=== PATIENT | male | born 1980 | race Caucasian/White ===

== ENCOUNTER 2023-06-14 14:59 | Emergency (ER) | payer SELFPAY ==
[2023-06-14] VITALS (7 sets, daily range): BP systolic 112–126; BP diastolic 78–98; PULSE 87–102; RESP 16–20; TEMP 35.9–36.1; O2SAT 97–100; BMI 33.7
--- NOTE | 2023-06-14 15:07 | EX.ED.DYSGE1 ---
HPI History of Present Illness Chief Complaint: Shortness of Breath [facility] Medical History (Updated 06/14/23 @ 16:04 by Ania Lu) CHF (congestive heart failure) Medical History no medical history Home Medications amoxicillin 875 mg-potassium clavulanate 125 mg tablet 1 tab PO BID #14 tabs 06/14/23 [Rx Last Taken Unknown] furosemide 40 mg tablet 40 mg PO BID #14 tabs 06/14/23 [Rx Last Taken Unknown] Allergy/AdvReac Type Severity Reaction Status Date / Time No Known Allergies Allergy Verified 06/14/23 15:00 Social History Smoking Status: Current every day smoker tobacco type: cigarettes EXAM Physical Exam Const Vital Signs: 06/14/23 15:00 06/14/23 15:59 06/14/23 16:02 Temperature 96.6 F L Temperature Source Temporal Pulse Rate 102 H 91 Respiratory Rate 18 20 H Respiratory Effort Respiratory Pattern Blood Pressure 126/98 H 113/84 H Blood Pressure Mean 107 93 Pulse Ox 100 97 Oxygen Delivery Method Room Air Room Air Room Air 06/14/23 16:02 06/14/23 16:05 06/14/23 18:00 Temperature 97 F L Temperature Source Pulse Rate 88 Respiratory Rate 16 Respiratory Effort Normal Non-Labored Short of Breath Respiratory Pattern Normal Blood Pressure 112/88 H Blood Pressure Mean 96 Pulse Ox 98 Oxygen Delivery Method Room Air 06/14/23 17:00 06/14/23 17:15 Temperature Temperature Source Pulse Rate 87 88 Respiratory Rate 18 16 Respiratory Effort Respiratory Pattern Blood Pressure 113/78 112/88 H Blood Pressure Mean 89 95 Pulse Ox 97 98 Oxygen Delivery Method MDM MDM MDM Narrative Medical decision making narrative: HISTORY OF PRESENT ILLNESS: 42-year-old male presents with shortness of breath. Notes has been ongoing for weeks. States he has history of heart failure. Notes he does not see his bed maker until July. He notes increased dyspnea on exertion and swelling. He also endorses chest pain. Chest pain is been constant over this time period. He denies any history of diabetes, hypertension, hyperlipidemia. Denies family history of early cardiac . Denies drug use. Notes cough is chronic. No shortness of breath as well. Denies fever or sick contacts. Is not vaccinated gets COVID or flu. The patient denies recent surgery in the last 4 weeks or immobilization in the last 3 days, denies previous diagnosis of DVT or PE, hemoptysis, unilateral leg swelling or malignancy with treatment the last 6 months or palliative. No estrogen use noted. Patient denies sudden onset of pain, no tearing sensation, no migratory symptoms, no new numbness, weakness or loss of sensation. Patient denies family history or personal history of Connective tissue disorders (Marfan's Syndrome, Jeovanny Danlos etc). REVIEW OF SYSTEMS: Pertinent positives: Chest pain, SOB, leg swelling Pertinent negatives: Syncope, unilateral leg swelling, mopped assist PHYSICAL EXAM: Nursing triage notes reviewed, Vital signs reviewed Constitutional: please see mdm HENT: MMM Eyes: Pupils equal round and reactive to light, Extraocular muscles intact Neck: No stridor, no JVD, full neck ROM Lungs: Clear to auscultation, No wheezing or rales. No increased work of breathing, no conversational dyspnea, no accessory muscle use, no nasal flaring. No respiratory distress noted Heart: Regular rate and rhythm, No murmurs, No rubs and No gallops, 2+ distal pulses (radial, femoral, posterior tibial) in all extremities Abdomen: Soft, there is no tenderness, rigidity, rebound or guarding, no obvious peritoneal signs, no palpable pulsatile abdominal masses, no auscultated abdominal bruit : No CVAT Extremities: No edema Neuro: No focal neurological deficits, cranial nerves II through XII intact, 5/5 strength in all extremities. Intact sensation to light touch in all extremities, 2+ reflexes bilateral patella tendons. Normal gait. No ataxia. Skin: No rash or lesions noted MEDICAL DECISION MAKING: Chief Complaint: Shortness breath, chest pain and swelling External records reviewed: No recent cardiac catheterizations, stress test or echocardiograms noted in our chart reviewed clinisync which showed a history of left heart and right heart catheterization however there is no date or results of the studies noted Factors affecting care: Heart failure Social determinants of health: none History obtained from others: Patient's girlfriend Consults: none [facility] Narrative: Patient was initially hemodynamically stable, afebrile and nontoxic-appearing. Exam without rales, wheezes, respiratory distress, no focal cardiopulmonary maladies. No lower extremity edema. States the symptoms been ongoing for 2 weeks. Chest pain is worse today. I considered the following differential diagnosis: CHF exacerbation, pneumonia, COVID, flu, ACS, arrhythmia, anemia ALL IMAGES (IF OBTAINED) HAVE BEEN PERSONALLY REVIEWED AND INTERPRETED BY MYSELF. EKG with normal sinus rhythm, left axis deviation, normal intervals, no obvious STEMI, frequent PVCs, bigeminy, no prior EKG for comparison CBC without leukocytosis, severe anemia, no thrombocytopenia. BNP elevated consistent with volume overload, increased ventricular stretch, no prior for comparison BMP without evidence of significant electrolyte abnormalities, no anion gap, no acute kidney injury. High-sensitivity troponin is negative, no evidence of myocardial ischemia CBC without leukocytosis, severe anemia, no thrombocytopenia. The synthesis of the patient's history, exam, labs images suggest likely community-acquired pneumonia and mild CHF exacerbation. Patient appears comfortable he is in no respiratory distress. No rales. He had very slight lower extremity edema. He ambulate without significant hypoxia. Given the mild presentation I did offer him admission for IV diuresis and IV antibiotics however he refused stating he like to go home and take oral antibiotics and increase his diuretic over next week and follow with his primary doctor for outpatient lab evaluation. Oral Augmentin and IV Lasix given here in the ED. Prescription written. All questions answered. I completed a HEART Score to screen for Major Adverse Cardiac Event (MACE) in this patient. The evidence indicates that the patient is very low risk for MACE and this is consistent with my clinical intuition. The risk of further workup or hospitalization for MACE is likely higher than the risk of the patient having a MACE. It is, therefore, in the patient?s best interest not to do additional emergent testing or to be hospitalized for MACE at this time. Shared Decision-Making No hospitalization indicated I have discussed with the patient my clinical impression and the result of the HEART Score to screen for MACE, as well as the risks of further testing and hospitalization. The HEART Score shows that the risk for MACE is less than 1%. Although the risk of MACE has not been completely eliminated, the risks of further testing or hospitalization for MACE likely exceed any potential benefit, and the patient agrees with not pursuing further emergent evaluation or hospitalization for MACE at this time. The patient and/or family, caregivers express understanding. The patient and/or family, caregivers agrees with the plan. Total critical care time today provided was at least 0 minutes. This excludes separately billable procedures. Critical care time (if documented) is secondary to the patient having high probability of clinically significant/life threatening deterioration in the patient's condition which required my urgent intervention. Impression: 1. Dyspnea 2. Shortness of breath 3. Community pneumonia 4. CHF exacerbation Dispo: Discharge home This note was generated with [employer] dictation software. It may contain incorrect words, spelling, and punctuation that were not noted in review of the chart prior to signing. Lab Data Labs: Laboratory Results - last 24 hr 06/14/23 15:53 WBC 7.6 RBC 5.39 Hgb 15.5 Hct 46.5 MCV 86.3 MCH 28.8 MCHC 33.3 RDW Std Deviation 40.4 RDW Coeff of [place] 13.0 Plt Count 161 MPV 12.2 H Immature Gran % (Auto) 0.400 Neut % (Auto) 57.4 Lymph % (Auto) 33.0 Bell % (Auto) 7.2 Eos % (Auto) 1.2 Baso % (Auto) 0.8 Absolute Neuts (auto) 4.4 Absolute Lymphs (auto) 2.51 Nucleated RBC % 0 Sodium 135 L Potassium 4.0 Chloride 103 Carbon Dioxide 26.0 Anion Gap 6 BUN 14 Creatinine 1.17 Estim Creat Clear Calc 109.72 Est GFR (MDRD) Af Amer 88 Est GFR (MDRD) Non-Af 72 BUN/Creatinine Ratio 12.0 Glucose 407 H Calcium 9.3 Troponin I High Sens 40 B-Natriuretic Peptide 720.2 H Radiography Diagnostic Testing: Clinical Impression(s) from Imaging Studies Chest X-Ray 06/14/23 15:17 IMPRESSION: Mild cardiomegaly. Question right infiltrate/edema. Electronically Signed: Klaus Toledo MD at 15:37 EST Reading Location ID and State: [facility] / [place] Tel , Service support , Discharge Plan Triage Chief Complaint: Shortness of Breath Other Complaint: Edema ED Provider: Mauro Concepcion Dx/Rx/DC Orders Instructions: ED Heart Failure, Congestive (CHF), ED Peripheral Edema, Bilateral, ED Pneumonia (Adult) Prescriptions: New amoxicillin-pot clavulanate 875-125 mg tablet 1 tab PO BID Qty: 14 0RF furosemide 40 mg tablet 40 mg PO BID Qty: 14 0RF Primary Care Provider: Care Physician,No Primary Referrals: Radha Singh MD [Med Staff - Sew On Operator] - Activity Restrictions/Additional Instructions: Thank you for trusting us with your care today! Given diagnosed with Community pneumonia and a congestive heart failure exacerbation. Please take Tylenol (2 pills, 650 mg), ibuprofen (2 pills, 400 mg) every 6 hours as needed for pain and fever control. Please take antibiotics to course complete. Please take Lasix as prescribed for neck 7 days. Please return to the emergency department if your symptoms change or worsen. Specifically develop loss of consciousness, severe chest pain, worsening shortness of breath, worsening swelling. Please follow with your primary care physician for further outpatient evaluation and management. Disposition Disposition: Home, Self Care Discharge Date/Time: 06/14/23 18:15
--- NOTE | 2023-06-14 15:12 | EKG12_ITS ---
Test Reason : CP Blood Pressure : / mmHG Vent. Rate : 094 BPM Atrial Rate : 094 BPM P-R Int : 190 ms QRS Dur : 108 ms QT Int : 366 ms P-R-T Axes : 066 -75 073 degrees QTc Int : 457 ms Sinus rhythm with Premature supraventricular complexes and with frequent Premature ventricular comple xes Left axis deviation Septal infarct , age undetermined Abnormal ECG Confirmed by PETER BOLTON, MEKA ([id number]), medical editor SANIYA CIFUENTES ([id number]) on 06/16/2023 10:11:38 AM Referred By: JUJU Confirmed By:MEKA GREEN MD
--- NOTE | 2023-06-14 15:17 | RAD_ITS ---
EXAM: XR CHEST, 1 VIEW CLINICAL INDICATION: Shortness of breath TECHNIQUE: Frontal view of the chest. COMPARISON: No relevant prior studies available. FINDINGS: LUNGS AND PLEURAL SPACES: Mild peribronchial thickening within the central portion of the right lung which may represent pulmonary edema or acute inflammatory or infectious change. No pleural effusion or pneumothorax. HEART: Mild cardiomegaly. MEDIASTINUM: No mediastinal or hilar mass. BONES/JOINTS: No acute abnormality. RAD/Chest 1 View (Portable) IMPRESSION: Mild cardiomegaly. Question right infiltrate/edema. Electronically Signed: Klaus Toledo MD at 15:37 EST ,
--- NOTE | 2023-06-14 15:20 | NURSING ---
NO OLD EKGS
--- OUTSIDE RECORDS SUMMARY | 2023-06-14 15:49 | XMS RPT_ITS | CCD ---
Author Name Unknown Address [address] [place] [address] Organization [facility] Care Team Providers Care Patient Relations Coordinator Name Role Phone DANA ELDER, DR DARIEL Lennon Primary Care Physician Unavailable Primary Care Provider radha Kendall Attending Unavaila santana [facility], 837 Primary Care Unavail RENEE Ruano Attending Unavailable DR DARIEL CORTEZ DO Primary Care Unavai lable Medications Current Medications Medication Drug Class(es) Dates Sig (Normalized) Sig (Original) fluticasone propionate 0.05 mg/actuat metered dose nasal spray (3 sources) Corticosteroid Start: 03-17-2021 take 1 dose nasal route once daily in the morning fluticasone 50 mcg/inh NASAL spray Dose = 1 spray(s), Nostril, each, qAM, # 15.8 mL, 0 Refill(s), Eustachian tube disorder Start Date: 03/17/21 Status: Ordered Completed/Discontinued Medications Medication Drug Class(es) Dates Sig (Normalized) Sig (Original) acetaminophen 325 mg / HYDROcodone bitartrate 5 mg oral tablet (1 source) Opioid Agonist Start: 03-06-2014 take 1 tablet by mouth every six hours as needed HYDROcodone-aceta minophen (NORCO) 5-325 mg per tablet Take 1 tablet by mouth every 6 hours as needed. 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 Nonspecific chest pain (1 source) Chest pain; Translations: [Chest pain, unspecified] Onset: 08-02-2021 Episodic Otitis media and related conditions (3 sources) Eustachian tube disorder 03-17-2021 Episodic Residual codes; unclassified (1 source) Obstructive sleep apnea syndrome; Translations: [Obstructive sleep apnea (adult) (pediatric)] Onset: 08-02-2021 Chronic Results Test Name Value Interpretation Reference Range Facil ity Vital Signs Date Time Vital Sign Value Performing Clinician Kiki lorenzo 06-02-2023 17:25-[address] Cuff Size DR GAURI ANTONIO MD [facility] 06-02-2023 17:25-[address] GAURI ANTONIO MD [facility] 06-02-2023 17:25-[address] GAURI Howard MD [facility] 06-02-2023 17:25-0500 Body height 185.[address] GAURI ANTONIO MD [facility] 06-02-2023 17:25-0500 Body temperature 96.98 [degF] DR GAURI ANTONIO MD [facility] 06-02-2023 17:25-0500 Body weight 113.[address] GAURI ANTONIO MD [facility] 06-02-2023 17:25-0500 Diastolic Blood Pressure Non-Invasive 74 mm[Hg] DR GAURI ANTONIO MD [facility] 06-02-2023 17:25-0500 Heart rate 104 /min DR GAURI ANTONIO MD [facility] 06-02-2023 17:25-0500 Respiratory rate 18 /min DR GAURI ANTONIO MD [facility] 06-02-2023 17:25-0500 Systolic Blood Pressure Non-Invasive 129 mm[Hg] DR GAURI ANTONIO MD [facility] 02-16-2023 15:37-0400 Blood Pressure Cuff Size RENEE MELO MD [facility] 02-16-2023 15:37-0400 Blood Pressure Location RENEE MELO MD [facility] 02-16-2023 15:37-0400 Blood Pressure Method RENEE MELO MD [facility] 02-16-2023 15:37-0400 Body temperature 98.06 [degF] RENEE MELO MD [facility] 02-16-2023 15:37-0400 Diastolic Blood Pressure Non-Invasive 81 1 RENEE MELO MD [facility] 02-16-2023 15:37-0400 Heart rate 99 /min RENEE MELO MD [facility] 02-16-2023 15:37-0400 Respiratory rate 18 /min RENEE MELO MD [facility] 02-16-2023 15:37-0400 Systolic Blood Pressure Non-Invasive 122 1 RENEE MELO MD [facility] 2021 03:52-0400 Diastolic blood pressure 68 mm[Hg] MARIEL FITCH MD [facility] 2021 03:52-0400 Heart rate 88 /min MARIEL FITCH MD [facility] 2021 03:52-0400 Mean blood pressure 77 mm[Hg] MARIEL FITCH MD [address] [place] [address] 2021 03:52-0400 Reason For Taking VItal Signs MARIEL FITCH MD [facility] 2021 03:52-0400 Respiratory rate 16 /min MARIEL FITCH MD [address] [place] [address] 2021 03:52-0400 Systolic blood pressure 94 mm[Hg] MARIEL FITCH MD [address] [place] [address] 2021 01:40-0400 Heart rate 85 /min MARIEL FITCH MD [address] [place] [address] 2021 01:24-0400 Heart rate 79 /min MARIEL FITCH MD [address] [place] [address] 2021 01:14-0400 Body temperature 97.7 [degF] MARIEL FITCH MD [address] [place] [address] 08-02-2021 23:07-0400 Body temperature 98.06 [degF] MARIEL FITCH MD [address] [place] [address] 08-02-2021 23:07-0400 Diastolic blood pressure 80 mm[Hg] MARIEL FITCH MD [address] [place] [address] 08-02-2021 23:07-0400 Mean blood pressure 88 mm[Hg] MARIEL FITCH MD [address] [place] [address] 08-02-2021 23:07-0400 Reason For Taking VItal Signs MARIEL FITCH MD [address] [place] [address] 08-02-2021 23:07-0400 Respiratory rate 16 /min MARIEL FITCH MD [facility] 08-02-2021 23:07-0400 Systolic blood pressure 104 mm[Hg] MARIEL FITCH MD [address] [place] [address] 08-02-2021 19:37-0400 Body temperature 97.88 [degF] MARIEL FITCH MD [address] [place] [address] 08-02-2021 19:37-0400 Diastolic blood pressure 68 mm[Hg] MARIEL FITCH MD [address] [place] [address] 08-02-2021 19:37-0400 Mean blood pressure 81 mm[Hg] MARIEL FITCH MD [address] [place] [address] 08-02-2021 19:37-0400 Reason For Taking VItal Signs MARIEL FITCH MD [address] [place] [address] 08-02-2021 19:37-0400 Respiratory rate 18 /min MARIEL FITCH MD [address] [place] [address] 08-02-2021 19:37-0400 Systolic blood pressure 106 mm[Hg] MARIEL FITCH MD [facility] 08-02-2021 16:32-0400 Body height 185.4 cm MARIEL FITCH MD [facility] 08-02-2021 16:32-0400 Body weight 122.5 kg MARIEL FITCH MD [address] [place] [address] 08-02-2021 16:32-0400 Body weight 35.64 kg/m2 MARIEL FITCH MD [facility] 08-02-2021 16:10-0400 Heart rate 93 /min MARIEL FITCH MD [facility] 08-02-2021 11:58-0400 Heart rate 97 /min MARIEL FITCH MD [facility] 08-01-2021 21:57-0400 Body weight 122.5 kg MARIEL FITCH MD [facility] 08-01-2021 21:57-0400 Heart rate 115 /min MARIEL FITCH MD [facility] Encounters Encounter Date Encounter Type Care Provider Facility Start: 06-02-2023 End: 06-02-2023 Emergency department patient visit DR GAURI ANTONIO MD [facility] Start: 02-16-2023 End: 02-16-2023 Emergency department patient visit RENEE MELO Facility:B Start: 02-16-2023 End: 02-16-2023 Emergency department patient visit RENEE MELO MD [facility] Start: 01-22-2022 End: 01-22-2022 Emergency department patient visit radha SUPRIYA ELIAS [facility] Facility:[id number] Start: 08-15-2021 End: 08-15-2021 Subsequent hospital visit by physician PARAMJIT CANO Procedures Date Procedure Procedure Detail Performing Clinician Start: 08-23-2021 Ecg routine ecg w/le ast 12 lds i&r only Start: 08-22-2021 Ecg routine ecg w/le ast 12 lds i&r only Start: 08-15-2021 Ecg routine ecg w/le ast 12 [facility] i&r only Catheterization of l eft heart MARIEL FITCH MD Catheterization of r ight heart MARIEL FITCH MD Cholecystectomy MARIEL Tam MD Incision and drainag e of deep infected bursa of knee region MARIEL FITCH MD Plan of Treatment Date Care Activity Detail Author Start: 12-27-2021 Influenza vaccination INFLUENZA (Sea son Ended) [facility] Start: 08-04-2015 LIPID SCREEN LIPID SCREEN [facility] Start: 08-04-1999 Urine microalbumin profile DTAP,TDAP ,TD (1 - Tdap) [facility] Start: 1998 HEPATITIS C SCREENING HEPATITIS C SC REENING [facility] Start: 1998 HIV SCREENING HIV SCREENING [facility] Start: 1992 Adult depression scr eening assessment DEPRESSION SCREENING [facility] Start: 1985 COVID-19 VACCINE (1) COVID-19 VACCIN E (1) [facility] Payers Date Payer Category Payer Self-pay 1980 Unknown [id number] 1980 Unknown [id number] Social History Date Type Detail Facility Start: 03-17-2021 Tobacco smoking status Heavy t obacco smoker (finding) [facility] Assigned 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 Start: 1980 Sex Assigned At Not on file C [facility] Functional Status Date Assessment Result Facility 02-16-2023 Functional Status Independent [facility] 02-16-2023 Functional Status Ambulation in [place], Ambulation in Room [facility] 2021 Functional Status [facility] 2021 Functional Status [facility] 08-02-2021 Functional Status [facility] 08-02-2021 Functional Status [facility] 08-02-2021 Functional Status [facility] 08-02-2021 Functional Status [facility] Mental Status Date Assessment Result Facility 02-16-2023 Mental Status Orientation Oriented x 4 [facility] 02-16-2023 [facility] 2021 Mental Status [facility] 08-02-2021 [facility] 08-02-2021 Mental Status [facility] Clinical Notes 08-01-2021 to 02-16-2023 Note Date & Type Note Facility 02-16-2023 Hospital Discharge instructions Patient Education 02/16/2023 18:03:07 Heart Failure, Congestive (CHF) Left- or Right- Side Congestive Heart Failure (CHF) The heart is a large muscle that acts as a pump to circulate blood throughout the body. Blood carries oxygen to all of the organs, including the brain, muscles, and skin. After your body takes the oxygen out of the blood, the blood returns to the heart. The right side of the heart collects the blood from the body and pumps it to the lungs. In the lungs, it gets fresh oxygen and gives up carbon dioxide. The oxygen-rich blood from the lungs then returns to the left side of the heart, where it is pumped back out to the rest of your body, starting the process all over. Congestive heart failure (CHF) occurs when the heart muscle does not function normally, leading to fluid retention or reduces blood flow. This can be caused by heart muscle weakness or stiffness, or a heart valve problem. Heart failure can affect the right side of the heart or the left side. But heart failure may affect not only the right side of the heart or only the left side. Although it may have started on one side, it can and often eventually does affect both sides. Right-side heart failure When the right side of the heart is failing, it can t handle the blood it is getting from the rest of the body. This blood returns to the heart through veins. When too much pressure builds up in the veins, fluid leaks out into the tissues. [place] then causes that fluid to move to those parts of the body that are the lowest. So one of the first symptoms of right-side CHF can include swelling in the feet and ankles. If the condition gets worse, the swelling can even go up past the knees. Sometimes it gets so severe, the liver and intestines can get congested as well. Left-side heart failure When the left side of the heart is failing, it can t handle the blood it gets from the lungs. Pressure then builds up in the veins of the lungs, causing fluid to leak into the lung tissues. This may cause CHF and pulmonary edema. This causes you to feel short of breath, weak, or dizzy. These symptoms are often worse with exertion, such as when climbing stairs or walking up hills. Lying with your head flat is uncomfortable and can make your breathing worse. This may make sleeping difficult. You may need to use extra pillows to elevate your upper body to sleep well. The same is true when just resting during the daytime. You may also feel weak or tired and have less energy during exertion. There are many causes of heart failure including: Coronary artery disease Past heart attack (also known as acute myocardial infarction, or AMI) High blood pressure Damaged heart valve Diabetes Obesity Cigarette smoking Alcohol abuse Heart failure is usually a chronic condition. The purpose of medical treatment is to improve the pumping action of the heart and to remove excess water from the body. A number of medicines can help reach this goal, improve symptoms, and prevent the heart from becoming weaker. Sometimes, heart failure can become so severe that a device is placed in the heart to help with pumping. Another major goal is to better treat the causes of heart failure, such as diabetes and high blood pressure, by making changes in your lifestyle and maximizing medical control when needed. Home care Follow these guidelines when caring for yourself at home: Check your weight every day. This is very important because a sudden increase in weight gain could mean worsening heart failure. Keep these things in mind: oUse the same scale every day. oWeigh yourself at the same time every day. oMake sure the scale is on a hard floor surface, not on a rug or carpet. oKeep a record of your weight every day so your healthcare provider can see it. If you are not given a log sheet for this, keep a separate journal for this purpose. Cut back on the amount of salt (sodium) you eat. Follow your healthcare provider's recommendation on how much salt or sodium you should have each day. oLimit high-salt foods. These include olives, pickles, smoked meats, salted potato chips, and most prepared foods. oDon't add salt to your food at the table. Use only small amounts of salt when cooking. oRead the labels carefully on food packages to learn how much salt or sodium is in each serving in the package. Remember, a can or package of food may contain more than 1 serving. So if you eat all the food in the package, you may be getting more salt than you think. Follow your healthcare provider's recommendations about how much fluid you should have. Be aware that some foods, such as soup, pudding, and juicy fruits like oranges or melons, contain liquid. You'll need to count the liquid in those foods as part of your daily fluid intake. Your provider can help you with this. Stop smoking. Cut back on how much alcohol you drink. Lose weight if you are overweight. The excess weight adds a lot of stress on the workload of the heart. Stay active. Talk with your provider about an exercise program that is safe for your heart. Keep your feet elevated to reduce swelling. Ask your provider about support hose as a preventive treatment for daytime leg swelling. Besides taking your medicine as instructed, an important part of treatment is lifestyle changes. These include diet, physical activity, stopping smoking, and weight control. Improve your diet by including more fresh foods, cutting back on how much sugar and saturated fat you eat, and eating fewer processed foods and less salt. Follow-up care Follow up with your healthcare provider, or as advised. Make sure to keep any appointments that were made for you. These can help better control your congestive heart failure. You will need to follow up with your provider on a routine basis to make sure your heart failure is well managed. If an X-ray, electrocardiogram (ECG), or other tests were done, you will be told of any new findings that may affect your care. Call 911 Call 911 if you: Become severely short of breath Feel lightheaded, or feel like you might pass out or faint Have chest pain or discomfort that is different than usual, the medicines your doctor told you to use for this don't help, or the pain lasts longer than 10 to 15 minutes You suddenly develop a rapid heart rate When to seek medical advice The following may be signs that your heart failure is getting worse. Call your healthcare provider right away if any of these happen: Sudden weight gain. This means 3 or more pounds in one day, or 5 or more pounds in 1 week Trouble breathing not related to being active New or increased swelling of your legs or ankles Swelling or pain in your abdomen Breathing trouble at night. This means waking up short of breath or needing more pillows to breathe. Frequent coughing that doesn t go away Feeling much more tired than usual [id number] [employer]. [address] [place] [address], [place] [address]. All rights reserved. This information is not intended as a substitute for professional medical care. Always follow your healthcare professional's instructions. Follow Up Care 02/16/2023 15:31:56 With:JANNA BENITEZ Address: [address] [facility] [place] [phone] Business (1) When:2-4 days Comments:Schedule an appointment to establish a local online media director.Continue all current medications.Elevate your legs as much as possible.Return to the ED if symptoms worsen. [facility] 02-16-2023 Emergency department Discharge summary Discharge Instructions Thank you for allowing [facility] to assist you with your healthcare needs. The following is important discharge information regarding your hospital visit. Diagnosis from Today's Visit Shortness of breath What to Do Next Instructions from Your Care Team No qualifying data available. Post Acute Orders No qualifying data available. You Need to Schedule the Following Appointments Follow Up with JANNA BENITEZ When Within 2-4 days Why: Schedule an appointment to establish a local online media director. Continue all current medications. Elevate your legs as much as possible. Return to the ED if symptoms worsen. Where: [address] [facility] [place] [address]- [phone] Business (1) Allergies NKA Medications Please ask your primary doctor or pharmacist before taking any other medication not listed, including over the counter drugs, herbal medications, vitamins and or supplements as they may interact with your home medications. What How Much When Why Instructions Last Dose Unchanged baclofen (baclofen 10 mg oral tablet) 1 tab(s) by mouth Three (3) times a day Duration: 7 Days Unchanged fluticasone nasal (fluticasone 50 mcg/ inh NASAL spray) 1 spray(s) each nostril Once a day (in the morning) Eustachian tube disorder Please take this list to your next doctor s visit. Bring all medications you take, including over the counter medications, herbals and other supplements with you to your doctor s visit. Patients and families are reminded to discard old lists and to update any records with all medication providers or retail pharmacies. Education Materials Left- or Right- Side Congestive Heart Failure (CHF) The heart is a large muscle that acts as a pump to circulate blood throughout the body. Blood carries oxygen to all of the organs, including the brain, muscles, and skin. After your body takes the oxygen out of the blood, the blood returns to the heart. The right side of the heart collects the blood from the body and pumps it to the lungs. In the lungs, it gets fresh oxygen and gives up carbon dioxide. The oxygen-rich blood from the lungs then returns to the left side of the heart, where it is pumped back out to the rest of your body, starting the process all over. Congestive heart failure (CHF) occurs when the heart muscle does not function normally, leading to fluid retention or reduces blood flow. This can be caused by heart muscle weakness or stiffness, or a heart valve problem. Heart failure can affect the right side of the heart or the left side. But heart failure may affect not only the right side of the heart or only the left side. Although it may have started on one side, it can and often eventually does affect both sides. Right-side heart failure When the right side of the heart is failing, it can t handle the blood it is getting from the rest of the body. This blood returns to the heart through veins. When too much pressure builds up in the veins, fluid leaks out into the tissues. [place] then causes that fluid to move to those parts of the body that are the lowest. So one of the first symptoms of right-side CHF can include swelling in the feet and ankles. If the condition gets worse, the swelling can even go up past the knees. Sometimes it gets so severe, the liver and intestines can get congested as well. Left-side heart failure When the left side of the heart is failing, it can t handle the blood it gets from the lungs. Pressure then builds up in the veins of the lungs, causing fluid to leak into the lung tissues. This may cause CHF and pulmonary edema. This causes you to feel short of breath, weak, or dizzy. These symptoms are often worse with exertion, such as when climbing stairs or walking up hills. Lying with your head flat is uncomfortable and can make your breathing worse. This may make sleeping difficult. You may need to use extra pillows to elevate your upper body to sleep well. The same is true when just resting during the daytime. You may also feel weak or tired and have less energy during exertion. There are many causes of heart failure including: Coronary artery disease Past heart attack (also known as acute myocardial infarction, or AMI) High blood pressure Damaged heart valve Diabetes Obesity Cigarette smoking Alcohol abuse Heart failure is usually a chronic condition. The purpose of medical treatment is to improve the pumping action of the heart and to remove excess water from the body. A number of medicines can help reach this goal, improve symptoms, and prevent the heart from becoming weaker. Sometimes, heart failure can become so severe that a device is placed in the heart to help with pumping. Another major goal is to better treat the causes of heart failure, such as diabetes and high blood pressure, by making changes in your lifestyle and maximizing medical control when needed. Home care Follow these guidelines when caring for yourself at home: Check your weight every day. This is very important because a sudden increase in weight gain could mean worsening heart failure. Keep these things in mind: oUse the same scale every day. oWeigh yourself at the same time every day. oMake sure the scale is on a hard floor surface, not on a rug or carpet. oKeep a record of your weight every day so your healthcare provider can see it. If you are not given a log sheet for this, keep a separate journal for this purpose. Cut back on the amount of salt (sodium) you eat. Follow your healthcare provider's recommendation on how much salt or sodium you should have each day. oLimit high-salt foods. These include olives, pickles, smoked meats, salted potato chips, and most prepared foods. oDon't add salt to your food at the table. Use only small amounts of salt when cooking. oRead the labels carefully on food packages to learn how much salt or sodium is in each serving in the package. Remember, a can or package of food may contain more than 1 serving. So if you eat all the food in the package, you may be getting more salt than you think. Follow your healthcare provider's recommendations about how much fluid you should have. Be aware that some foods, such as soup, pudding, and juicy fruits like oranges or melons, contain liquid. You'll need to count the liquid in those foods as part of your daily fluid intake. Your provider can help you with this. Stop smoking. Cut back on how much alcohol you drink. Lose weight if you are overweight. The excess weight adds a lot of stress on the workload of the heart. Stay active. Talk with your provider about an exercise program that is safe for your heart. Keep your feet elevated to reduce swelling. Ask your provider about support hose as a preventive treatment for daytime leg swelling. Besides taking your medicine as instructed, an important part of treatment is lifestyle changes. These include diet, physical activity, stopping smoking, and weight control. Improve your diet by including more fresh foods, cutting back on how much sugar and saturated fat you eat, and eating fewer processed foods and less salt. Follow-up care Follow up with your healthcare provider, or as advised. Make sure to keep any appointments that were made for you. These can help better control your congestive heart failure. You will need to follow up with your provider on a routine basis to make sure your heart failure is well managed. If an X-ray, electrocardiogram (ECG), or other tests were done, you will be told of any new findings that may affect your care. Call 911 Call 911 if you: Become severely short of breath Feel lightheaded, or feel like you might pass out or faint Have chest pain or discomfort that is different than usual, the medicines your doctor told you to use for this don't help, or the pain lasts longer than 10 to 15 minutes You suddenly develop a rapid heart rate When to seek medical advice The following may be signs that your heart failure is getting worse. Call your healthcare provider right away if any of these happen: Sudden weight gain. This means 3 or more pounds in one day, or 5 or more pounds in 1 week Trouble breathing not related to being active New or increased swelling of your legs or ankles Swelling or pain in your abdomen Breathing trouble at night. This means waking up short of breath or needing more pillows to breathe. Frequent coughing that doesn t go away Feeling much more tired than usual [id number] [employer]. [address] [place] [address]. All rights reserved. This information is not intended as a substitute for professional medical care. Always follow your healthcare professional's instructions. Additional Information VACCINATE! IT SAVES LIVES! Members of the community who have not yet received the COVID-19 vaccine and would like to receive it can visit one of [facility] vaccine clinics. There are many vaccine clinic locations within the [facility]. For locations and available times, please visit [email or web address] It is important to note that some COVID mobile vaccine clinics are held outdoors and may be canceled in rainy or stormy conditions. To learn more about pediatric vaccinations (ages 5-11), we invite you to visit the [facility] webpage. [email or web address]/pa [email or web address]-Srwiu-Jxhnhkzhupz-Freque [email or web address].html To learn more about the COVID-19 vaccine, we invite you to visit the CDC website for a list of frequently asked questions. https://www.cdc.gov/coronavirus/2 019-ncov/vaccines/faq.html [facility] Patient [facility] Access Instructions: Stay connected with your healthcare team and access your personal medical information anytime with the [facility] Patient Portal. If you would like a full copy of your medical records please contact the [facility] Medical Records Department Friday through Friday between 8a.m. and 4:30p.m. Please follow the directions below to access the portal: 1.Access the email account you provided upon registration to the [facility].2.Look for an invitation email from [facility].3.Open the email and access the invitation link: Accept Invitation to [facility].Fill in the required tamayo to create your account. Sign into [email or web address] with your username and password that you created in the above steps to stay up to date. You can then view a summary of results, a summary of your visits, and the ability to download your summaries to your computer or send the information securely to a physician. Remember that your healthcare information is confidential, so carefully consider who you will allow to register on the [facility] Patient Portal for access to your information. You can also access the [facility] Patient Portal on the [employer]. Simply click on Health Records under Health Data and then click on the [facility] logo. HOW TO SAFELY DISPOSE OF PRESCRIPTION MEDICATIONS Please use one of the following methods to safely dispose of your unused medications. 1.Use a drug disposal kit: the drug disposal pouch allows you to safely discard your old and unused drugs. Ask your nurse to give you one when you are discharged.2.Visit a local take-back location: Many local pharmacies and police departments have programs that collect old and unwanted prescription drugs. Call your local pharmacy or go to http://[employer]/1G7Fd7k to find one close to you.3.Make use of household items: Use cat litter or old coffee grounds to dispose medications if other options are not available. Mix your drugs with these household products, seal them in an airtight container and throw it into the garbage. Call [facility]: [phone] to be sure your drugs can be disposed of in this way. Some medicines may require a different approach.4.Never flush your medications down the toilet. IF YOU HAVE BEEN PRESCRIBED AN OPIOIDS FOR PAIN If you have been prescribed an opioid (such as hydrocodone, oxycodone or morphine), it is critical to understand the possible side effects and risks of opioid pain medications. Even when taken as directed, opioids can have several side effects including: Tolerance, meaning you might need to take more of a medication for the same pain relief. Nausea, vomiting and/or constipation. Sleepiness, dizziness, dry mouth, confusion, depression or itching. Physical dependence, meaning you have withdrawal symptoms when a medication is stopped ? this can develop within a few days. KNOW YOUR RESPONSIBILITIES It is important to know exactly how much and how often to take the opioid pain medications you are prescribed. Never take opioids in higher amounts or more often than prescribed. Do not combine opioids with alcohol or other drugs that cause drowsiness, such as benzodiazepines, also known as benzos, including diazepam and alprazolam, muscle relaxants or sleep aids. Never sell or share prescription opioids. This is illegal. Store opioids in a secure place and out of reach of others (including children, family, friends and visitors). The last page(s) of this document has been signed and retained as a CHART COPY Signatures Patient Education Materials Heart Failure, Congestive (CHF) Medication Leaflets My discharge plan and instructions have been reviewed and explained to me and IHECTOR PATRICK M understand my current condition and have read and understand these discharge instructions. I have received a written copy of the plan/instructions. If I have questions, I am aware that I should contact my doctor. 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 No focal consolidation, large pleural effusion or pneumothorax. Vascular congestion and diffuse bilateral reticular interstitial opacities. No acute osseous findings. IMPRESSION: No focal consolidation. Vascular congestion and diffuse bilateral reticular interstitial opacities are nonspecific although correlate for any symptoms of mild congestion/interstitial edema. I have personally reviewed the images of this examination and agree with the resident's findings and interpretation. Interpreted by: Alphonse Felipe Preliminary Report By: Luis Carias Electronically signed By Alphonse Felipe Dictated Date: 02/16/2023 4:43:15 PM Prelim Date: 02/16/2023 4:46:31 PM Sign Date: 02/16/2023 4:54:36 PM Ordering Provider: RENEE MELO [facility] 02-16-2023 Note Sinus rhythm Probable left atrial enlargement Left anterior fascicular block Anterior infarct, old Nonspecific T abnormalities, lateral leads Electronic Signature: RENEE MELO MD 02/16/2023 16:25:13 [facility] 01-22-2022 Note ED Nursing Discharge Summary Entered On: 01/22/2022 19:23 EDT Performed On: 01/22/2022 19:05 EDT by Kluas Sutherland RN [place] Information [id number] ED IV's : Discontinue ED IV Site Assessment : Yes, Completed in IView ED Vitals Completed : Yes ED Final Assessment Completed : Yes ED Progress Note Completed : Yes Complete all PRN/Pain response forms? : Yes ED Disassociate Patient from Monitor : Yes Updated Depart Time : Yes ED Belongings sent w patient [id number] : Not applicable Klaus Sutherland RN - 01/22/2022 19:22 EDT Education Instructions given to : Patient TeachBack Methodology : TeachBack, Explanation Barriers to Learning : None evident Klaus Sutherland RN - 01/22/2022 19:22 EDT Post-Hospital Education Adult Grid Importance of Follow-Up Visits : Verbalizes understanding Plan of Care : Verbalizes understanding Klaus Sutherland RN - 01/22/2022 19:22 EDT ED Assistance Summary Assistance Given? 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 Atypical chest pain with a severe systolic dysfunction 2. Cardiomyopathy severe systolic dysfunction ischemic versus nonischemic 3. Monomorphic PVCs with nonsustained VT 4. Untreated sleep apnea 5. Mild pericardial effusion 6. Upper respiratory infection Plan Atypical chest pain with above symptoms echocardiogram was reviewed official read is still pending he has severe systolic dysfunction with a EF of about 20% diffuse wall motion hypokinesis with dilated LV. Differential includes ischemia need to proceed with a left and right heart catheterization to rule out any coronary disease. Other differential include recent upper respiratory infection leading to myocarditis induced cardiomyopathy or PVC induced cardiomyopathy. We will plan to proceed with ischemic work-up with above. Patient need to be on guideline directed medical therapy we will order ESR CRP respiratory panel has been ordered drug screen is negative. 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 Fitch. If his cardiac cath does not show any CAD CAD patient may need a cardiac MRI for further evaluation. Patient need a outpatient evaluation for obstructive sleep apnea based on his symptom. Counseled on smoking cessation DVT prophylaxis on heparin subcu CODE STATUS full code Addendum by ADRIAN BURGESS on August 02, 2021 15:47:46 EDT I have personally seen, examined, and evaluated the patient on the encounter date. I have reviewed the fellow s documentation and agree with the fellow s findings and plan as documented, unless otherwise stated. [facility] 04-07-2022 HCoV 229E RNA MARK+non-probe Ql (Nph)Not Detected *NA* (08/02/21 10:47 AM) [employer] [facility]Sero [id number] Hospital Discharge instructions Follow Up Care 08/01/2021 21:47:32 With:ADRIAN BURGESS MD Address: When:08/16/2021 [facility] Hospital course Narrative No data available for this section [facility] Hospital Discharge instructions No data available for this section [facility] Jimmy Progress note No data available for this section [facility] Summary Purpose Family History No Family History Records FoundNo Family History Records Found No data available for this section No Family History Records FoundNo Family History Records Found No data available for this section Advance Directives No Advanced Directives Records FoundNo Advanced Directives Records FoundNo Advanced Directives Records FoundNo Advanced Directives Records Found Additional Source Comments Care Team (unrecognized sect ion and content) Personnel Name: DARIEL CORTEZ Address: [address] [place] [address] Care Team Personnel Name: DARIEL CORTEZ Member Role: Primary Care Physician Address: Address: [address] [place] [address] Name: REENE MELO MD Position: ED Physician Member Role: ED Physician Address: Address: [facility] [address] [place] [address]- Care Team Related Persons Name: CYRUS KULKARNI Care Team Personnel Name: DARIEL CORTEZ Member Role: Primary Care Physician Address: Address: [address] [place] [address] Care Team Related Persons Name: CYRUS KULKARNI Source Comments (unrecognize d section and content) In the event this informatio n is protected by the Federal Confidentiality of Alcohol and Drug Abuse Patient Records regulations: The Federal rules restrict any use of the information to criminally investigate or prosecute any alcohol or drug abuse patient.[facility] (unrecognized sect ion and content) No Status Records FoundNo Status Records FoundNo Status Records FoundNo Status Records Found INFORMATION SOURCE (unrecogn ized section and content) DATE CREATED AUTHOR AUTHOR'S ORGANIZ ATION 01/29/2022 [facility] DATE CREATED AUTHOR AUTHOR'S ORGANIZ ATION 02/21/2023 [facility] ([place]) DATE CREATED AUTHOR AUTHOR'S ORGANIZ ATION 05/16/2023 [facility] Ce nter FOR RECORDS PERTAINING TO PATIENTS WHO ARE OR HAVE BEEN ENROLLED IN A CHEMICAL DEPENDENCY/SUBSTANCEABUSE PROGRAM, SOME INFORMATION MAY BE OMITTED. This clinical summary was aggregated from multiple sources. Caution should be exercised in using it in the provision of clinical care. This summary normalizes information from multiple sources, and as a consequence, information in this document may materially change the coding, format and clinical context of patient data. In addition, data may be omitted in some cases. CLINICAL DECISIONS SHOULD BE BASED ON THE PRIMARY CLINICAL RECORDS. [employer] provides no warranty or guarantee of the accuracy or completeness of information in this document.
[2023-06-14 16:00] LABS: Absolute Lymphocyte Count 2.51 X10^3/uL (0.83-4.51); Absolute Neutrophil Count 4.4 X10^3/uL (2.0-7.7); Basophil# 0.06 X10^3/uL; Basophil% 0.8 % (0-1); Eosinophil# 0.09 X10^3/uL; Eosinophils% 1.2 % (0-5); Hematocrit 46.5 % (40-54); Hemoglobin 15.5 g/dL (13.0-16.5); Lymphocyte # 2.51 X10^3/ul (0.83-4.51); Mean Corp Hgb Conc 33.3 g/dL (32-36); Mean Corpuscular Hgb 28.8 pg (27.0-32.0); Mean Corpuscular Volume 86.3 fL (80-94); Mean Platelet Vol. 12.2 fl (6.2-12.0); Monocyte# 0.55 X10^3/uL; Monocyte% 7.2 % (0-10); NRBC Flagged by Analyzer 0 % (0-5); Neutrophil # 4.37 X10^3/uL (2.7-7.7); Neutrophil % 57.4 % (47-70); Platelet Count 161 K/mm3 (150-450); RBC Distribution Width SD 40.4 fl (35.1-43.9); Red Blood Count 5.39 M/mm3 (4.6-6.2); White Blood Count 7.6 K/mm3 (4.4-11.0)
[2023-06-14 16:20] LABS: Anion Gap 6 (5-15); BUN 14 mg/dL (7-18); Calcium,Total 9.3 mg/dL (8.5-10.1); Chloride 103 mmol/L (98-107); Creatinine, Serum 1.17 mg/dL (0.70-1.30); EST Glomerular Filtration Rate 72 mL/min (>60); Est Glom Filt Rate - Afr Amer 88 mL/min (>60); Estimated Creatinine Clearance 109.72 ml/min; Glucose 407 mg/dL (74-106); Sodium Level 135 mmol/L (136-145); Troponin-I HS 40 pg/mL (3.0-78.0)
[2023-06-14 16:21] LABS: BNP,B-Type NATRIURETIC PEPTIDE 720.2 pg/mL (0-100)
[2023-06-14] MEDS: Amox/Clavulanate 875 MG Tablet PO (17:59)
[2023-06-14] MEDS: Furosemide 40 MG/4 ML Vial IV (18:04)
== END 2023-06-14 18:15 | disposition home or self-care (01) ==
PROVIDERS: Emergency Provider Emergency Medicine; Visit Provider Emergency Medicine
DX: J18.9 Pneumonia, unspecified organism (principal); I50.9 Heart failure, unspecified; I49.3 Ventricular premature depolarization; Z11.52 Encounter for screening for COVID-19; F17.210 Nicotine dependence, cigarettes, uncomplicated
CPT/HCPCS: 71045; 80048; 83880; 84484; 85025; 87631; 93005; 96374; 99285; A4216; J1940

== ENCOUNTER 2023-07-23 15:19 | Inpatient (IN) | payer SELFPAY ==
[2023-07-23] VITALS (17 sets, daily range): BP systolic 92–132; BP diastolic 57–93; PULSE 62–97; RESP 12–24; TEMP 35.5–36.6; O2SAT 96–99; BMI 33.6; BMI 31.8
--- NOTE | 2023-07-23 15:45 | EKG12_ITS ---
Test Reason : CP/SOB Blood Pressure : / mmHG Vent. Rate : 100 BPM Atrial Rate : 053 BPM P-R Int : 172 ms QRS Dur : 102 ms QT Int : 378 ms P-R-T Axes : 063 -78 068 degrees QTc Int : 487 ms Sinus bradycardia with frequent and consecutive Premature ventricular complexes Left axis deviation Anteroseptal infarct (cited on or before 14-JUN-2023) Abnormal ECG When compared with ECG of 14-JUN-2023 15:05, Premature supraventricular complexes are no longer Present Questionable change in initial forces of Anterior leads Confirmed by MEKA GREEN MD ([id number]), photo editor MARTY TOLENTINO ([id number]) on 07/24/2023 9:16:03 AM Referred By: NICOL/LAURI Confirmed By:MEKA GREEN MD
--- NOTE | 2023-07-23 15:55 | NURSING ---
REDRAW CBCD PER LAB
--- NOTE | 2023-07-23 15:59 | EDS_ITS ---
HPI <Silke Wisdom RN - Last Filed: 07/23/23 16:53> History of Present Illness Chief Complaint: Chest Pain Detail of Chief Complaint: Chest pain, sore throat, shortness of breath Informant: patient Onset/Context/Timing Onset: Yesterday Activity at onset: exertion Timing: Intermittent Quality: Positive for Pressure Location: - (Suprasternal radiating to throat) Current Severity: 7/10 Maximum Severity: 9/10 Worsened By: Exertion Relieved By: Rest Associated Symptoms: Positive for Cough and - (Dizziness) Narrative Narrative: Patient is a 42-year-old male with past medical history significant for CHF that was diagnosed 1 year ago at [facility] who presents with upper sternal chest pain radiating to throat accompanied by shortness of breath. Patient reports symptoms are worse with exertion and alleviated by rest. Patient reports had an episode of dizziness yesterday when he was moving fast at work and became short of breath and had a near fall due to losing his balance. Patient reports CHF diagnosed 1 year ago at [facility] at which time he had a stress test which was positive leading to a heart cath which he reports as clean. He does report he had a echo cardiogram at that time showing an EF of 47%. He has never had a Holter monitor. He has not seen cardiology since his admission to [facility] 1 year ago due to financial constraints. Patient also reports clear nasal drainage since 05/2023 along with productive cough with thick white sputum. Patient denies fever or chills. Denies recent travel. Denies nausea and vomiting. Patient does report difficulty with bowel movements. He reports green stool and the amount of his bowel movements is approximately half his normal amount. Patient reports last BM was today. He complains of abdominal distention. Patient's mother is diagnosed with CAD at 58 years old. He reports his grandmother from an [place]. Unknown age. He reports occasional alcohol use a couple times a year. He was a 3 pack/day smoker for 26 years. However over the past year he has decreased to 1/2 pack/day. Of note, his EKG does show frequent PVCs, including couplets. He denies palpitations. Prior Similar Symptoms: Yes Recent Illness/Hospitalization: No CVD Risk Factors: Positive for Smoking PE Risk Factors: Negative for Recent Travel/Surgery, Recent Immobilization or Prior DVT or PE PFSH <Silke Wisdom RN - Last Filed: 07/23/23 16:53> [facility] Medical History CHF (congestive heart failure) Home Medications amoxicillin 875 mg-potassium clavulanate 125 mg tablet 1 tab PO BID #14 tabs 06/14/23 [Rx Last Taken Unknown] furosemide 40 mg tablet 40 mg PO BID #14 tabs 06/14/23 [Rx Last Taken Unknown] Allergy/AdvReac Type Severity Reaction Status Date / Time No Known Allergies Allergy Verified 07/23/23 15:22 Social History Smoking Status: Current every day smoker tobacco type: cigarettes ROS <Silke Wisdom RN - Last Filed: 07/23/23 16:53> ROS ED Constitutional Constitutional ED: Denies chills, fever(s) or sweats Eyes Eyes: Reports other Details: Recent diagnosis of cataracts. ; Denies change in vision ENT ENT ED: Reports rhinorrhea, sore throat and other Details: Clear nasal drainage. Sore throat since May. He was seen here in May, diagnosed with pneumonia. Placed on antibiotics in which he reports his sore throat improved. However, it returned approximately 2 weeks ago. ; Denies ear pain Cardiovascular Cardiovascular: Reports chest pain; Denies orthopnea, palpitations or racing heartbeat Respiratory/Chest Respiratory/Chest: Reports cough, dyspnea on exertion and sputum; Denies orthopnea Gastrointestinal Gastrointestinal: Reports other Details: Abdominal distention ; Denies abdominal pain, constipation, diarrhea, nausea or vomiting Genitourinary Genitourinary ED: Denies dysuria, hematuria or urinary frequency Musculoskeletal Musculoskeletal: Denies arthralgias, back pain, myalgias or neck pain Integumentary Denies rash Neurologic Neurologic: Denies headache(s), paresthesias or weakness Psychiatric Psychiatric: Denies anxiety or depression Endocrine Endocrinology: Denies polydipsia, polyphagia or polyuria EXAM <Silke Wisdom RN - Last Filed: 07/23/23 16:53> Physical Exam Narrative Exam Narrative: Patient is awake, alert, talkative, and cooperative. Const Vital Signs: 07/23/23 15:19 07/23/23 15:20 07/23/23 15:41 Temperature 96 F L Temperature Source Temporal Pulse Rate 62 62 Respiratory Rate 18 18 Respiratory Pattern Blood Pressure 121/93 H 121/93 H Blood Pressure Mean 102 102 Pulse Ox 99 99 Oxygen Delivery Method Room Air Room Air 07/23/23 15:41 07/23/23 16:19 Temperature Temperature Source Pulse Rate 87 Respiratory Rate 23 H Respiratory Pattern Normal Blood Pressure 111/57 L Blood Pressure Mean 75 Pulse Ox 96 Oxygen Delivery Method Room Air Positive well nourished and well developed General Appearance ED: well developed and NAD HEENT Reports moist mucous membranes normocephalic and atraumatic Eyes PERRL Neck no lymphadenopathy, supple and no JVD Chest Wall inspection of chest normal and palpation of chest normal Resp normal respiratory effort and clear to auscultation bilaterally Auscultation: Negative for rales, rhonchi or wheezes Cardio S1 normal heart sound, S2 normal heart sound and no murmurs Rate: other Other Details: Irregular rhythm with frequent PVCs, including couplets. Rhythm: abnormal rhythm ectopic beats GI normal to inspection, nondistended, normoactive bowel sounds and soft to palpation Back/Spine no thoracic nor lumbar tenderness Extremity Extremity Narrative: +1 pitting edema to bilateral lower extremities. Patient reports this is chronic over the past year. General Extremety ED: Yes edema General Extremity: edema Neuro oriented x3 Sensorium / Orientation: awake and alert Motor Exam: strength 5/5 throughout Psych mental status grossly normal Skin no rashes or lesions noted <Dr. Niall Quan MD - Last Filed: 07/23/23 16:54> Physical Exam Const Vital Signs: 07/23/23 15:19 07/23/23 15:20 07/23/23 15:41 Temperature 96 F L Temperature Source Temporal Pulse Rate 62 62 Respiratory Rate 18 18 Respiratory Pattern Blood Pressure 121/93 H 121/93 H Blood Pressure Mean 102 102 Pulse Ox 99 99 Oxygen Delivery Method Room Air Room Air 07/23/23 15:41 07/23/23 16:19 Temperature Temperature Source Pulse Rate 87 Respiratory Rate 23 H Respiratory Pattern Normal Blood Pressure 111/57 L Blood Pressure Mean 75 Pulse Ox 96 Oxygen Delivery Method Room Air MDM <Silke Wisdom RN - Last Filed: 07/23/23 16:53> MDM MDM Narrative Medical decision making narrative: Patient placed on surveillance monitor. IV line initiated. Labwork obtained to e valuate for leukocytosis, anemia, and electrolyte derangement. EKG obtained to evaluate for cardiac arrhythmia/ischemia. History & Record Review Discussion w/independent historian: Patient Lab Data Labs: Laboratory Results - last 24 hr 07/23/23 07/23/23 07/23/23 15:39 15:39 16:13 WBC Cancelled 9.1 Corrected WBC Cancelled RBC Cancelled 5.46 Hgb Cancelled 15.6 Hct Cancelled 47.2 MCV Cancelled 86.4 MCH Cancelled 28.6 MCHC Cancelled 33.1 RDW Std Deviation Cancelled 39.4 RDW Coeff of Marianna Cancelled 12.8 Plt Count Cancelled 147 L MPV Cancelled 13.0 H Immature Gran % (Auto) Cancelled 0.400 Neut % (Auto) Cancelled 66.0 Lymph % (Auto) Cancelled 25.4 [place] % (Auto) Cancelled 7.1 Eos % (Auto) Cancelled 0.4 Baso % (Auto) Cancelled 0.7 Absolute Neuts (auto) Cancelled 6.0 Absolute Lymphs (auto) Cancelled 2.31 Total Counted Cancelled Neutrophils % (Manual) Cancelled Band Neutrophils % Cancelled Lymphocytes % (Manual) Cancelled Monocytes % (Manual) Cancelled Eosinophils % (Manual) Cancelled Basophils % (Manual) Cancelled Metamyelocytes % Cancelled Myelocytes % Cancelled Promyelocytes % Cancelled Blast Cells % Cancelled Plasma Cell % (Manual) Cancelled Other Cells % Cancelled Nucleated RBC % Cancelled 0 Nucleated RBCs/100 WBC Cancelled Differential Comment Cancelled Diff Path Review Cancelled Hypersegmented Neuts Cancelled Atypical Lymphocytes Cancelled Reactive Lymphocytes Cancelled Smudge Cells Cancelled Toxic Granulation Cancelled Toxic Vacuolation Cancelled Dohle Bodies Cancelled John Rods Cancelled Platelet Estimate Cancelled Plt Morphology Comment Cancelled RBC Morphology Cancelled Cancelled Polychromasia Cancelled Hypochromasia Cancelled Basophilic Stippling Cancelled Anisocytosis Cancelled Microcytosis Cancelled Macrocytosis Cancelled Spherocytes Cancelled Sickle Cells Cancelled Target Cells Cancelled Tear Drop Cells Cancelled Ovalocytes Cancelled Stomatocytes Cancelled Clark-Sheldon Bodies Cancelled Basil Cells Cancelled Bite Cells Cancelled Crenated Cell Cancelled Acanthocytes (Spur) Cancelled Rouleaux Cancelled Schistocytes Cancelled Sodium 131 L Potassium 4.9 Chloride 99 Carbon Dioxide 25.0 Anion Gap 7 BUN 18 Creatinine 1.40 H Est GFR (MDRD) Af Amer 71 Est GFR (MDRD) Non-Af 59 L BUN/Creatinine Ratio 12.9 Glucose 517 H* Calcium 9.3 Troponin I High Sens 43 Radiography Diagnostic Testing: Clinical Impression(s) from Imaging Studies Chest X-Ray 07/23/23 16:03 IMPRESSION: No radiographic evidence of acute cardiopulmonary disease. Electronically Signed: Brenton Nathan MD at 16:26 EDT , EKG Initial EKG: Attestation: I personally reviewed and interpreted this EKG as follows: Interpretation: Sinus Rhythm Comments: Sinus rhythm with frequent PVCs, including couplets. No evidence of ischemia. Prior EKG tracings: available for review Differential Diagnosis Chest pain/SOB: ACS, pneumonia and CHF Management Discussion w/another healthcare provider: Other (Dr. Quan, ED provider.) Treatment and Re-Evaluation :: Lab work reviewed. CBC shows a normal white blood cell count of 9.1, hemoglobin 15.6, and platelets 147. Chemistry shows a low sodium of 131, elevated creatinine of 1.4, and hyperglycemia of 517. Troponin is negative at 43. Chest x-ray still shows no acute cardiopulmonary process. Hospitalist contacted by Dr. Quan. Patient to be admitted for chest pain, hyperglycemia, and CHF. Upon reevaluation, patient awake and alert in the ED bed. Patient does report he is unable to walk a flight of stairs due to shortness of breath. He denies pain at this time. Plan of care discussed with patient regarding admission. Patient agreeable. <Dr. Niall Quan MD - Last Filed: 07/23/23 16:54> [facility] MDM Narrative Medical decision making narrative: Patient placed on surveillance monitor. IV line initiated. Labwork obtained to evaluate for leukocytosis, anemia, and electrolyte derangement. EKG obtained to evaluate for cardiac arrhythmia/ischemia. I have personally performed a face to face assessment of the patient and have reviewed the JOBY Note. I performed a substantive portion of the visit including all aspects of the following. My asencio findings include: History is 42-year-old male complaining of midsternal chest pain which she has had on and off since May. Also increasing shortness of breath. He said if he walks a flight of stairs she has to stop or he starts breathing very heavily. He said walking in from the parking lot today to the ER he got real short of breath. He does have a history of prior CHF. But he has no coronary disease. Exam is [42-year-old male no acute distress vital signs stable. Pulse ox 9 9% on room air no signs hypoxia. H EENT exam unremarkable. Neck nontender JVD. No lymphadenopathy. Lungs clear to auscultation bilaterally. Heart regular rhythm no murmur. PVCs. Abdomen soft nontender. Normal bowel sounds no perit alcantar signs. Moving all 4 extremities. 1+ pitting edema both anterior shins. Neurologically is awake and alert no focal motor deficits. Moving all 4 extremities. Normal strength.] Medical Decision Making [patient's labs are consistent with new onset diabetes. I have already spoken to the hospitalist patient will be admitted for chest pain, exertional dyspnea, peripheral edema and new onset diabetes.] Other additions or changes: [None] Lab Data Attestation: I reviewed the patient's lab results. Lab results narrative: CBC shows white count 9. H&H of 15.7. Platelets 147. Electrolytes show sodium 131 7. BUN of 18 and creatinine 1.4. Glucose is elevated at 517 consistent with new onset diabetes. He had elevated blood sugar on a prior lab also. Troponin is normal at 43. Labs: Laboratory Results - last 24 hr 07/23/23 07/23/23 07/23/23 15:39 15:39 16:13 WBC Cancelled 9.1 Corrected WBC Cancelled RBC Cancelled 5.46 Hgb Cancelled 15.6 Hct Cancelled 47.2 MCV Cancelled 86.4 MCH Cancelled 28.6 MCHC Cancelled 33.1 RDW Std Deviation Cancelled 39.4 RDW Coeff of Marianna Cancelled 12.8 Plt Count Cancelled 147 L MPV Cancelled 13.0 H Immature Gran % (Auto) Cancelled 0.400 Neut % (Auto) Cancelled 66.0 Lymph % (Auto) Cancelled 25.4 [place] % (Auto) Cancelled 7.1 Eos % (Auto) Cancelled 0.4 Baso % (Auto) Cancelled 0.7 Absolute Neuts (auto) Cancelled 6.0 Absolute Lymphs (auto) Cancelled 2.31 Total Counted Cancelled Neutrophils % (Manual) Cancelled Band Neutrophils % Cancelled Lymphocytes % (Manual) Cancelled Monocytes % (Manual) Cancelled Eosinophils % (Manual) Cancelled Basophils % (Manual) Cancelled Metamyelocytes % Cancelled Myelocytes % Cancelled Promyelocytes % Cancelled Blast Cells % Cancelled Plasma Cell % (Manual) Cancelled Other Cells % Cancelled Nucleated RBC % Cancelled 0 Nucleated RBCs/100 WBC Cancelled Differential Comment Cancelled Diff Path Review Cancelled Hypersegmented Neuts Cancelled Atypical Lymphocytes Cancelled Reactive Lymphocytes Cancelled Smudge Cells Cancelled Toxic Granulation Cancelled Toxic Vacuolation Cancelled Dohle Bodies Cancelled John Rods Cancelled Platelet Estimate Cancelled Plt Morphology Comment Cancelled RBC Morphology Cancelled Cancelled Polychromasia Cancelled Hypochromasia Cancelled Basophilic Stippling Cancelled Anisocytosis Cancelled Microcytosis Cancelled Macrocytosis Cancelled Spherocytes Cancelled Sickle Cells Cancelled Target Cells Cancelled Tear Drop Cells Cancelled Ovalocytes Cancelled Stomatocytes Cancelled Clark-Sheldon Bodies Cancelled Basil Cells Cancelled Bite Cells Cancelled Crenated Cell Cancelled Acanthocytes (Spur) Cancelled Rouleaux Cancelled Schistocytes Cancelled Sodium 131 L Potassium 4.9 Chloride 99 Carbon Dioxide 25.0 Anion Gap 7 BUN 18 Creatinine 1.40 H Est GFR (MDRD) Af Amer 71 Est GFR (MDRD) Non-Af 59 L BUN/Creatinine Ratio 12.9 Glucose 517 H* Calcium 9.3 Troponin I High Sens 43 Radiography Diagnostic Testing: Clinical Impression(s) from Imaging Studies Chest X-Ray 07/23/23 16:03 IMPRESSION: No radiographic evidence of acute cardiopulmonary disease. Electronically Signed: Brenton Nathan MD at 16:26 EDT , Discharge Plan Triage Chief Complaint: Chest Pain ED Provider: Niall Quan Dx/Rx/DC Orders Clinical Impression: Exertional dyspnea, Diabetes mellitus, new onset, Peripheral edema, Chest pain Prescriptions: No Action amoxicillin-pot clavulanate 875-125 mg tablet 1 tab PO BID Qty: 14 0RF furosemide 40 mg tablet 40 mg PO BID Qty: 14 0RF Primary Care Provider: Care Physician,No Primary Referrals: Care Physician,No Primary [Primary Care Provider] - Disposition Disposition: Acute Care Hospital [facility]
--- NOTE | 2023-07-23 16:03 | RAD_ITS ---
EXAM: XR CHEST, 1 VIEW CLINICAL INDICATION: chest pain TECHNIQUE: Frontal view of the chest. COMPARISON: 06/14/2023 FINDINGS: LUNGS AND PLEURAL SPACES: Unremarkable. No consolidation or edema. No pneumothorax. No effusion. HEART: Unremarkable. Cardiac silhouette not enlarged. MEDIASTINUM: Central airways and mediastinal contour are unremarkable. BONES/JOINTS: Unremarkable. No acute fracture. SOFT TISSUES: Unremarkable. RAD/Chest 1 View (Portable) IMPRESSION: No radiographic evidence of acute cardiopulmonary disease. Electronically Signed: Brenton Nathan MD at 16:26 EDT ,
[2023-07-23 16:19] LABS: Absolute Lymphocyte Count 2.31 X10^3/uL (0.83-4.51); Basophil# 0.06 X10^3/uL; Basophil% 0.7 % (0-1); Eosinophil# 0.04 X10^3/uL; Eosinophils% 0.4 % (0-5); Hematocrit 47.2 % (40-54); Hemoglobin 15.6 g/dL (13.0-16.5); Lymphocyte # 2.31 X10^3/ul (0.83-4.51); Lymphocyte % 25.4 % (19-41); Mean Corp Hgb Conc 33.1 g/dL (32-36); Mean Corpuscular Hgb 28.6 pg (27.0-32.0); Mean Corpuscular Volume 86.4 fL (80-94); Monocyte# 0.65 X10^3/uL; Monocyte% 7.1 % (0-10); NRBC Flagged by Analyzer 0 % (0-5); Platelet Count 147 K/mm3 (150-450); RBC Distribution Width CV 12.8 % (11.6-14.6); RBC Distribution Width SD 39.4 fl (35.1-43.9); Red Blood Count 5.46 M/mm3 (4.6-6.2); White Blood Count 9.1 K/mm3 (4.4-11.0)
[2023-07-23 16:23] LABS: Anion Gap 7 (5-15); BUN 18 mg/dL (7-18); BUN/Creat Ratio 12.9 RATIO (10-20); Calcium,Total 9.3 mg/dL (8.5-10.1); Chloride 99 mmol/L (98-107); EST Glomerular Filtration Rate 59 mL/min (>60); Est Glom Filt Rate - Afr Amer 71 mL/min (>60); Glucose 517 mg/dL (74-106); Potassium 4.9 mmol/L (3.5-5.1); Sodium Level 131 mmol/L (136-145); Troponin-I HS 43 pg/mL (3.0-78.0)
--- NOTE | 2023-07-23 17:13 | NURSING ---
PCU OSIEL CHEST PAIN, EXERTIONAL DYSPNEA, EDEMA, NEW ONSET DIABETES
--- NOTE | 2023-07-23 17:51 | HP.PCM.HOS_ITS ---
HPI - General General Date of Admission: 07/23/23 Date of Service: 07/23/23 Chief Complaint: chest pain HPI Narrative MORIS YOUNG, is a 42 M who presents with chest pain with exertion, shortness of breath on exertion. Also notes that he has lower extremity edema but is at baseline. Did feel dizzy recently. Patient was seen about a year ago at [facility] where he was told he had a low ejection fraction and has been ordered Lasix. He stated he had a cardiac catheterization at that time that showed normal coronaries but he apparently had a low ejection fraction on cardiac testing. He presents here with worsening symptoms. He has recent been told he has been diabetic and he has cut back on his soda intake from drinking Dr. Teran all day to maybe once a week he will have an orange crush. Medication for 90 PFSH Medical History CHF (congestive heart failure) Home Medications furosemide 40 mg tablet 40 mg PO BID #14 tabs 06/14/23 [Rx Last Taken Unknown] Allergy/AdvReac Type Severity Reaction Status Date / Time No Known Allergies Allergy Verified 07/23/23 15:22 Social History Smoking Status: Current every day smoker tobacco type: cigarettes ROS ROS Gaston Does have paresthesias in his feet where they feel cold. All review of systems were negative except as mentioned above in the history of present illness and the other review of systems. Vital Signs Vital Signs Vital Signs: 07/23/23 15:19 07/23/23 15:20 07/23/23 15:41 Temperature 35.5 C L Temperature Source Temporal Pulse Rate 62 62 Respiratory Rate 18 18 Respiratory Pattern Blood Pressure 121/93 H 121/93 H Blood Pressure Mean 102 102 Pulse Ox 99 99 Oxygen Delivery Method Room Air Room Air 07/23/23 15:41 07/23/23 16:19 07/23/23 16:55 Temperature 36.4 C L Temperature Source Pulse Rate 87 87 Respiratory Rate 23 H 18 Respiratory Pattern Normal Blood Pressure 111/57 L 92/77 Blood Pressure Mean 75 82 Pulse Ox 96 98 Oxygen Delivery Method Room Air 07/23/23 16:20 07/23/23 16:30 07/23/23 16:45 Temperature Temperature Source Pulse Rate 97 87 Respiratory Rate 24 H 23 H Respiratory Pattern Blood Pressure 108/65 92/77 Blood Pressure Mean 75 85 Pulse Ox 97 Oxygen Delivery Method 07/23/23 17:00 Temperature Temperature Source Pulse Rate 87 Respiratory Rate 16 Respiratory Pattern Blood Pressure 115/75 Blood Pressure Mean 89 Pulse Ox 98 Oxygen Delivery Method Room Air Weight Weight: 115.6 kg Body Mass Index (BMI) 33.6 Physical Exam Const Constitutional Narrative: On room air. No respiratory distress no conversational dyspnea. HEENT normocephalic, head/scalp atraumatic, hearing grossly normal bilaterally and moist oral mucous membranes Resp normal respiratory effort, no retractions, no use of accessory muscles and clear to auscultation bilaterally Cardio regular rate, regular rhythm, S1 normal heart sound and S2 normal heart sound GI normal to inspection, nondistended, normoactive bowel sounds, soft to palpation, non-tender and non-distended Extremity normal to inspection Extremity Narrative: Sock line edema proximal to that. Feet are intact without any ulcerations. Neuro moves all extremities Sensorium / Orientation: awake and alert Psych affect normal Results Lab / Micro Data Attestation: I reviewed the patient's lab results. 07/23/23 16:13 07/23/23 15:39 Labs: Laboratory Results - last 24 hr 07/23/23 15:39: WBC Cancelled, Corrected WBC Cancelled, RBC Cancelled, Hgb Cancelled, Hct Cancelled, MCV Cancelled, MCH Cancelled, MCHC Cancelled, RDW Std Deviation Cancelled, RDW Coeff of Marianna Cancelled, Plt Count Cancelled, MPV Cancelled, Immature Gran % (Auto) Cancelled, Neut % (Auto) Cancelled, Lymph % (Auto) Cancelled, [place] % (Auto) Cancelled, Eos % (Auto) Cancelled, Baso % (Auto) Cancelled, Absolute Neuts (auto) Cancelled, Absolute Lymphs (auto) Cancelled, Total Counted Cancelled, Neutrophils % (Manual) Cancelled, Band Neutrophils % Cancelled, Lymphocytes % (Manual) Cancelled, Monocytes % (Manual) Cancelled, Eosinophils % (Manual) Cancelled, Basophils % (Manual) Cancelled, Metamyelocytes % Cancelled, Myelocytes % Cancelled, Promyelocytes % Cancelled, Blast Cells % Cancelled, Plasma Cell % (Manual) Cancelled, Other Cells % Cancelled, Nucleated RBC % Cancelled, Nucleated RBCs/100 WBC Cancelled, Differential Comment Cancelled, Diff Path Review Cancelled, Hypersegmented Neuts Cancelled, Atypical Lymphocytes Cancelled, Reactive Lymphocytes Cancelled, Smudge Cells Cancelled, Toxic Granulation Cancelled, Toxic Vacuolation Cancelled, Dohle Bodies Cancelled, John Rods Cancelled, Platelet Estimate Cancelled, Plt Morphology Comment Cancelled, RBC Morphology Cancelled 07/23/23 15:39: RBC Morphology Cancelled, Polychromasia Cancelled, Hypochromasia Cancelled, Basophilic Stippling Cancelled, Anisocytosis Cancelled, Microcytosis Cancelled, Macrocytosis Cancelled, Spherocytes Cancelled, Sickle Cells Cancelled, Target Cells Cancelled, Tear Drop Cells Cancelled, Ovalocytes Cancelled, Stomatocytes Cancelled, Clark-Walnut Bodies Cancelled, [place] Cells Cancelled, Bite Cells Cancelled, Crenated Cell Cancelled, Acanthocytes (Spur) Cancelled, Rouleaux Cancelled, Schistocytes Cancelled, Sodium 131 L, Potassium 4.9, Chloride 99, Carbon Dioxide 25.0, Anion Gap 7, BUN 18, Creatinine 1.40 H, Est GFR (MDRD) Af Amer 71, Est GFR (MDRD) Non-Af 59 L, BUN/Creatinine Ratio 12.9, Glucose 517 H*, Calcium 9.3, Troponin I High Sens 43 07/23/23 16:13: WBC 9.1, RBC 5.46, Hgb 15.6, Hct 47.2, MCV 86.4, MCH 28.6, MCHC 33.1, RDW Std Deviation 39.4, RDW Coeff of Marianna 12.8, Plt Count 147 L, MPV 13.0 H , Immature Gran % (Auto) 0.400, Neut % (Auto) 66.0, Lymph % (Auto) 25.4, [place] % (Auto) 7.1, Eos % (Auto) 0.4, Baso % (Auto) 0.7, Absolute Neuts (auto) 6.0, Absolute Lymphs (auto) 2.31, Nucleated RBC % 0 EKG Initial EKG: Attestation: I personally reviewed and interpreted this EKG as follows: Prior EKG tracings: available for review EKG Rhythm Intrepretation: Sinus Rhythm (Frequent PVCs) Imaging Radiology Impression Chest X-Ray 07/23/23 16:03 IMPRESSION: No radiographic evidence of acute cardiopulmonary disease. Electronically Signed: Brenton Nathan MD at 16:26 EDT , Assessment & Plan Assessment/Plan (1) Unstable angina: PLAN: Plan Unstable angina * Current stable at this time. No indication for nitroglycerin drip at this time. No evidence of myocardial infarction therefore no indication for anticoagulation at this point. * Will initiate aspirin. * Check an echocardiogram, check morning lipid panel. * Requests made for records from [place] where his prior cardiac workup was performed * Consult cardiology here Frequent PVCs * Asymptomatic at rest. Patient has a known cardiomyopathy with a low ejection fraction specifically what that is like not sure at this time. * Check magnesium level * Check echocardiogram Diabetes mellitus type 2 * Recent diagnosed but I suspect this is probably more of a chronic process. * Sliding scale insulin. Start insulin glargine 10 units at night. 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 Heart failure with reduced ejection fraction * Clinically compensated at this time. * Continue with furosemide * Check echo as above VTE prophylaxis with low molecular weight heparin. Charges/Coding Visit Charges Inpatient E&M: 61761 Init Hosp L3
--- NOTE | 2023-07-23 18:28 | EKG12_ITS ---
Test Reason : Blood Pressure : / mmHG Vent. Rate : 084 BPM Atrial Rate : 084 BPM P-R Int : 164 ms QRS Dur : 114 ms QT Int : 440 ms P-R-T Axes : 062 -70 115 degrees QTc Int : 519 ms Sinus rhythm with frequent Premature ventricular complexes in a pattern of bigeminy Possible Left atrial enlargement Left anterior fascicular block Anterolateral infarct , age undetermined Confirmed by PETER BOLTON, MEKA ([id number]), photo editor MARTY TOLENTINO ([id number]) on 07/24/2023 8:53:52 AM Referred By: Confirmed By:MEKA GREEN MD
--- NOTE | 2023-07-23 18:28 | ECHOD_ITS ---
Reason For Study: Chest pain Procedure This was a 2D Doppler, Color Flow transthoracic echocardiogram. The study was technically difficult. Exam performed portable in patient room. Left Ventricle Mildly dilated left ventricle. Mild eccentric left ventricular hypertrophy. Apical false tendon noted. Severe global left ventricular systolic dysfunction. The estimated ejection fraction is 15 %. Right Ventricle Normal RV size. Moderate global right ventricular systolic dysfunction. Atria The left atrium is mildly enlarged. The right atrium is mildly enlarged. Bubble contrast study negative for right to left interatrial shunt. Mitral Valve The mitral valve is structurally normal. No prolapse or stenosis seen. Mild (1+) mitral valve insufficiency. Tricuspid Valve Normal tricuspid valve. Mild (1+) tricuspid valve insufficiency. Pulmonary artery systolic pressure is 47 mmHg. Aortic Valve Trisinus/trileaflet aortic valve. Pulmonic Valve Normal pulmonic valve. Mild (1+) pulmonic valve insufficiency. Great Vessels Normal aortic root. Pericardium/Pleural Trivial pericardial effusion. There are no echocardiographic indications of cardiac tamponade. Medication Performed a rapid injection of agitated mix of 9 cc saline and 1cc air to assess for atrial septal defect. Diluted definity 2.0ml given slow IV push to enhance endocardial definition. MMode/2D Measurements & Calculations LVIDd: 5.8 cm IVSd: 0.88 cm Ao root diam: 2.5 cm LVIDs: 5.1 cm LVPWd: 1.3 cm RVDd: 3.9 cm FS: 11.9 % LAV(MOD-bp): 67.4 ml LVAd ap4: 38.7 cm2 LVAd ap2: 32.4 cm2 LAV(MOD-bp) Indexed: 28.9 ml/m2 LVLd ap4: 8.9 cm LVLd ap2: 8.5 cm LAV(MOD-sp2): 57.8 ml EDV(MOD-sp4): 139.9 ml EDV(MOD-sp2): 102.3 ml LAV(MOD-sp4): 73.0 ml EDV(sp4-el): 143.0 ml EDV(sp2-el): 105.0 ml LVAs ap4: 31.5 cm2 LVAs ap2: 27.6 cm2 LVLs ap4: 7.9 cm LVLs ap2: 7.5 cm ESV(MOD-sp4): 104.2 ml ESV(MOD-sp2): 82.8 ml ESV(sp4-el): 106.9 ml ESV(sp2-el): 85.8 ml EF(MOD-sp4): 25.5 % EF(MOD-sp2): 19.1 % EF(sp4-el): 25.3 % SV(MOD-sp4): 35.7 ml SV(MOD-sp2): 19.5 ml SV(sp4-el): 36.1 ml LA A4 area: 23.8 cm2 LA dimension(2D): 5.1 cm RA A4 area: 21.2 cm2 Doppler Measurements & Calculations MV E max tucker: 85.7 cm/sec Lat Peak E' Tucker: 7.6 cm/sec Ao V2 max: 86.3 cm/sec E/E' lat: 11.2 Ao max P.0 mmHg LV V1 max: 56.1 cm/sec PA V2 max: 48.5 cm/sec TR max tucker: 313.4 cm/sec LV V1 max P.5 mmHg TR max P.3 mmHg ECHO/Echo Complete W/ Contrast Interpretation Summary The estimated ejection fraction is 15 %. Mildly dilated left ventricle. Moderate global right ventricular systolic dysfunction. The left atrium is mildly enlarged. The right atrium is mildly enlarged. Mild (1+) mitral valve insufficiency. Mild (1+) tricuspid valve insufficiency. Bubble contrast study negative for right to left interatrial shunt. Similiar EF based on Report from [place] in 2021 There is no comparison study a vailable. Ordering Physician: Roland Guzman Performed By: Leonela Bermudez RDCS
[2023-07-23 19:17] LABS: Troponin-I HS 49 pg/mL (3.0-78.0)
[2023-07-23 19:18] LABS: Hemoglobin A1c 12.2 % (3.8-5.6)
[2023-07-23] MEDS: Aspirin 81 MG TAB.CHEW 324 MG PO (19:33)
[2023-07-23] MEDS: Metoprolol Tartrate 25 MG Tablet PO (20:50)
[2023-07-23] MEDS: Furosemide 40 MG Tablet PO (20:50)
[2023-07-23] MEDS: Insulin Glargine-YFGN 100 UNIT/ML Pen 10 UNIT SC (21:16)
[2023-07-23 21:40] LABS: Bedside Glucose 385 mg/dL (74-106)
[2023-07-23 22:25] LABS: Troponin-I HS 52 pg/mL (3.0-78.0)
[2023-07-23] MEDS: 0.9% Saline Lock 10 ML Syringe IV (22:33)
[2023-07-23] MEDS: Magnesium Sulfate 2 GM in Dextrose 5%-Water (100mL Bag) 100 ML IV (22:33)
[2023-07-23] MEDS: Nitroglycerin (INPATIENT USE) 0.4 MG TAB.SUBL SL ×2 (22:41→22:48)
--- NOTE | 2023-07-24 02:45 | EKG12_ITS ---
Test Reason : AM EKG Blood Pressure : / mmHG Vent. Rate : 082 BPM Atrial Rate : 069 BPM P-R Int : 176 ms QRS Dur : 118 ms QT Int : 376 ms P-R-T Axes : 069 -71 173 degrees QTc Int : 439 ms Critical Test Result: Arrhythmia Sinus rhythm with frequent and consecutive Premature ventricular complexes Possible Left atrial enlargement Left axis deviation Anterior infarct , age undetermined Confirmed by PETER BOLTON, MEKA ([id number]), editorial assistant MARTY TOLENTINO ([id number]) on 07/24/2023 8:53:14 AM Referred By: Confirmed By:MEKA GREEN MD
[2023-07-24 04:09] LABS: Troponin-I HS 47 pg/mL (3.0-78.0)
--- NOTE | 2023-07-24 04:54 | RAD_ITS ---
INDICATION: arrhythmia EXAMINATION/TECHNIQUE: X-RAY - XR Chest 1 View COMPARISON: No relevant prior comparison study available FINDINGS: LINES/DEVICES: None. LUNGS: The lungs are well expanded. No consolidation, edema or effusion. No pneumothorax. MEDIASTINUM AND CARDIOVASCULAR STRUCTURES: Cardiac silhouette not enlarged. Central airways and mediastinal contour are unremarkable. BONES AND SOFT TISSUES: No acute osseous abnormalities. RAD/Chest 1 View (Portable) IMPRESSION: No acute pulmonary finding. Electronically Signed: Garcia Jean MD at 5:46 EDT ,
[2023-07-24 05:02] VITALS: BP 151/117; PULSE 88
[2023-07-24] MEDS: Metoprolol Tartrate 25 MG Tablet PO ×2 (05:02→22:09)
[2023-07-24] MEDS: Aspirin E.C. 81 MG Tablet PO (05:02)
[2023-07-24 05:13] VITALS: BMI 31.8
[2023-07-24 05:15] LABS: Absolute Lymphocyte Count 3.08 X10^3/uL (0.83-4.51); Absolute Neutrophil Count 3.6 X10^3/uL (2.0-7.7); Basophil# 0.05 X10^3/uL; Basophil% 0.7 % (0-1); Eosinophil# 0.11 X10^3/uL; Eosinophils% 1.5 % (0-5); Hematocrit 48.5 % (40-54); Hemoglobin 15.8 g/dL (13.0-16.5); Lymphocyte # 3.08 X10^3/ul (0.83-4.51); Lymphocyte % 41.9 % (19-41); Mean Corp Hgb Conc 32.6 g/dL (32-36); Mean Corpuscular Hgb 28.3 pg (27.0-32.0); Mean Corpuscular Volume 86.8 fL (80-94); Mean Platelet Vol. 13.1 fl (6.2-12.0); Monocyte# 0.44 X10^3/uL; NRBC Flagged by Analyzer 0 % (0-5); Neutrophil # 3.64 X10^3/uL (2.7-7.7); Neutrophil % 49.5 % (47-70); Platelet Count 125 K/mm3 (150-450); RBC Distribution Width CV 12.7 % (11.6-14.6); RBC Distribution Width SD 39.6 fl (35.1-43.9); Red Blood Count 5.59 M/mm3 (4.6-6.2); White Blood Count 7.4 K/mm3 (4.4-11.0)
[2023-07-24 05:35] LABS: Anion Gap 10 (5-15); BUN 20 mg/dL (7-18); Calcium,Total 9.1 mg/dL (8.5-10.1); Chloride 102 mmol/L (98-107); Cholesterol 158 mg/dL (200); Creatinine, Serum 1.05 mg/dL (0.70-1.30); EST Glomerular Filtration Rate 82 mL/min (>60); Est Glom Filt Rate - Afr Amer 99 mL/min (>60); Estimated Creatinine Clearance 118.97 ml/min; Glucose 385 mg/dL (74-106); High Density Lipoprotein 34 mg/dL; Magnesium 2.1 mg/dL (1.6-2.6); Phosphorus 4.1 mg/dL (2.5-4.9); Potassium 3.8 mmol/L (3.5-5.1); Sodium Level 135 mmol/L (136-145); Triglycerides 131 mg/dL; Very Low Density Lipoprotein 26 mg/dL (5-40)
[2023-07-24 05:44] LABS: BNP,B-Type NATRIURETIC PEPTIDE 974.8 pg/mL (0-100)
[2023-07-24 06:55] LABS: Bedside Glucose 366 mg/dL (74-106)
[2023-07-24 08:00] VITALS: BP 111/75; PULSE 73; RESP 16; TEMP 36.4; O2SAT 98
[2023-07-24 08:04] VITALS: O2SAT 98
[2023-07-24] MEDS: Enoxaparin 40 MG/0.4 ML Syringe SC (10:07)
[2023-07-24] MEDS: Furosemide 40 MG Tablet PO ×2 (10:07→18:13)
[2023-07-24] MEDS: 0.9% Saline Lock 10 ML Syringe IV (10:07)
[2023-07-24] MEDS: Insulin Lispro 100 UNIT/ML INSULN.PEN SC ×2 (10:12→18:14)
--- NOTE | 2023-07-24 10:25 | CASEMGMT ---
VIRGEN SHANKAR Face to Face with patient for initial transition planning/care coordination assessment. VIRGEN SHANKAR introduced self and role at [facility]. Patient lying in bed, alert and oriented. Patient willing to participate in assessment and is able to answer all questions appropriately. Care providers, pharmacy, and demographics verified. PCP: No, PCP list provided to patient. VIRGEN SHANKAR discussed the importance of follow up care and informed patient regarding [facility] Specialists: none Preferred Pharmacy: [facility] Insurance: None, just purchased insurance that will start July 27 Prescription Benefit: none Living Will/HPOA: none LNOK: significant other Living Arrangements: Patient lives with significant other in a single story home with no steps to enter. Patient states he is independent at home. Transportation: self, significant other DME/HHC: Patient denies DME in the home. No previous HHC or SNF. VIRGEN SHANKAR discussed glucometer at discharge and informed patient of OTC glucometer available at [facility] and will assist with obtaining script for glucometer. Patient wishes to discharge home, denies need for home health at this time. Patient states he has no further needs or concerns at this time. CM to follow for discharge planning needs that may arise. Disposition Plan: Patient to discharge home with family support and follow-up plans in place. Amy FERNANDEZ, RN, CM
--- NOTE | 2023-07-24 10:59 | PCM.CONS.C ---
Documented by User: MARLI Cunha 07/24/23 11:41 Assessment & Plan Assessment/Plan (1) Chest pain: (2) Cardiomyopathy: PLAN: Plan Did review medical records from [facility]. Echocardiogram is pending. It is unlikely that patient would need any additional testing based on heart catheterization from 2021. However based on these findings we will make further adjustments for plan of care. Plan would be to optimize his medications for his heart failure. Will also plan on establishing patient with us in our office so that we can follow on an outpatient basis. HPI Consult Data Date of Consult: 07/24/23 HPI Narrative HPI Narrative: MORIS YOUNG, is a 42 M who presented to [facility] emergency room on 07/23/2023 with Sore throat, shortness of breath and chest discomfort. He states that over the last 6 weeks he has been short of breath and has had a sore throat. He was treated with amoxicillin when he was in here for emergency room visit in May. He states over the last 3 weeks he has been more orthopneic and has not been able to lay flat. He does have chest tightness. He is short of breath with any exertional activity. He does not have any lower extremity edema. He does not have any palpitations. He does sometimes have lightheadedness and dizziness when he coughs. He states that in 2021 he was at [facility] where he underwent a diagnostic heart catheterization. He was noted to have a nonischemic cardiomyopathy. I did review medical records from [facility]. Ejection fraction on heart catheterization was 10 to 15% with mild to moderate disease. Echocardiogram demonstrated 20%. He did leave AMA. Patient states that he has not followed up with anybody after this as he did not have insurance. He recently does have insurance and is trying to follow-up with patients on an outpatient basis. He states that he has been compliant with his Lasix. It does appear that he was given this while he was in the emergency room. [facility] Medical History CHF (congestive heart failure) Home Medications furosemide 40 mg tablet 40 mg PO BID #14 tabs 06/14/23 [Rx Last Taken Unknown] Allergy/AdvReac Type Severity Reaction Status Date / Time No Known Allergies Allergy Verified 07/23/23 15:22 Social History Smoking Status: Current every day smoker tobacco type: cigarettes ROS Constitutional Constitutional: Denies change in weight, chills or fatigue Eyes Eyes: Denies acute decrease in peripheral vision or change in vision ENT HEENT: Denies dizziness, dry mouth or epistaxis Cardiovascular Cardiovascular: Reports as per HPI Respiratory/Chest Respiratory/Chest: Reports as per HPI Gastrointestinal Gastrointestinal: Denies abdominal pain, bloating, coffee ground emesis, diarrhea or heartburn Musculoskeletal Musculoskeletal: Denies myalgias, numbness or tingling Physical Exam Const alert, oriented x3 and no apparent distress HEENT normocephalic, head/scalp atraumatic, hearing grossly normal bilaterally, external ears normal, external nose normal and moist oral mucous membranes Eyes PERRL, EOMs intact bilaterally, conjunctivae normal and no scleral icterus Neck no lymphadenopathy, supple and no JVD Resp normal air movement and clear to auscultation bilaterally Cardio regular rate, regular rhythm, S1 normal heart sound, S2 normal heart sound, no murmurs, no rub, no gallops, no clicks, no JVD and peripheral pulses 2+ throughout GI normal to inspection, nondistended, normoactive bowel sounds, soft to palpation, non-tender and non-distended Extremity normal to inspection, normal capillary refill, no clubbing, cyanosis or edema and no pedal edema Neuro oriented x3, CN's II-XII intact bilaterally, moves all extremities and no focal motor deficits Psych cooperative and affect normal Risk Stratification Risk Stratification Applicable: No Charges/Coding Visit Charges Office Visits / Consults: 41685 IP Consult L3 Objective Data Vital Signs: Vital Signs Temp Pulse Resp BP Pulse Ox O2 Del Method 97.6 F L 73 16 111/75 98 Room Air 07/24/23 08:00 07/24/23 08:00 07/24/23 08:00 07/24/23 08:00 07/24/23 08:04 07/24/23 08:04 Oxygen Delivery Method Room Air Weight: 241 lb 10.026 oz Body Mass Index (BMI) 31.8 Intake & Output: Intake and Output for Last 24 Hours 07/22/23 07/23/23 07/24/23 23:59 23:59 23:59 Intake Total 1004 / 1004 Balance 1004 / 1004 Lab / Micro Data 07/24/23 03:20 07/24/23 03:20 Labs: Laboratory Results - last 24 hr 07/23/23 15:39: WBC Cancelled, Corrected WBC Cancelled, RBC Cancelled, Hgb Cancelled, Hct Cancelled, MCV Cancelled, MCH Cancelled, MCHC Cancelled, RDW Std Deviation Cancelled, RDW Coeff of Marianna Cancelled, Plt Count Cancelled, MPV Cancelled, Immature Gran % (Auto) Cancelled, Neut % (Auto) Cancelled, Lymph % (Auto) Cancelled, [place] % (Auto) Cancelled, Eos % (Auto) Cancelled, Baso % (Auto) Cancelled, Absolute Neuts (auto) Cancelled, Absolute Lymphs (auto) Cancelled, Total Counted Cancelled, Neutrophils % (Manual) Cancelled, Band Neutrophils % Cancelled, Lymphocytes % (Manual) Cancelled, Monocytes % (Manual) Cancelled, Eosinophils % (Manual) Cancelled, Basophils % (Manual) Cancelled, Metamyelocytes % Cancelled, Myelocytes % Cancelled, Promyelocytes % Cancelled, Blast Cells % Cancelled, Plasma Cell % (Manual) Cancelled, Other Cells % Cancelled, Nucleated RBC % Cancelled, Nucleated RBCs/100 WBC Cancelled, Differential Comment Cancelled, Diff Path Review Cancelled, Hypersegmented Neuts Cancelled, Atypical Lymphocytes Cancelled, Reactive Lymphocytes Cancelled, Smudge Cells Cancelled, Toxic Granulation Cancelled, Toxic Vacuolation Cancelled, Dohle Bodies Cancelled, John Rods Cancelled, Platelet Estimate Cancelled, Plt Morphology Comment Cancelled, RBC Morphology Cancelled 07/23/23 15:39: RBC Morphology Cancelled, Polychromasia Cancelled, Hypochromasia Cancelled, Basophilic Stippling Cancelled, Anisocytosis Cancelled, Microcytosis Cancelled, Macrocytosis Cancelled, Spherocytes Cancelled, Sickle Cells Cancelled, Target Cells Cancelled, Tear Drop Cells Cancelled, Ovalocytes Cancelled, Stomatocytes Cancelled, [place] Bodies Cancelled, Basil Cells Cancelled, Bite Cells Cancelled, Crenated Cell Cancelled, Acanthocytes (Spur) Cancelled, Rouleaux Cancelled, Schistocytes Cancelled, Sodium 131 L, Potassium 4.9, Chloride 99, Carbon Dioxide 25.0, Anion Gap 7, BUN 18, Creatinine 1.40 H, Est GFR (MDRD) Af Amer 71, Est GFR (MDRD) Non-Af 59 L, BUN/Creatinine Ratio 12.9, Glucose 517 H*, Calcium 9.3, Troponin I High Sens 43 07/23/23 16:13: WBC 9.1, RBC 5.46, Hgb 15.6, Hct 47.2, MCV 86.4, MCH 28.6, MCHC 33.1, RDW Std Deviation 39.4, RDW Coeff of Marianna 12.8, Plt Count 147 L, MPV 13.0 H, Immature Gran % (Auto) 0.400, Neut % (Auto) 66.0, Lymph % (Auto) 25.4, [place] % (Auto) 7.1, Eos % (Auto) 0.4, Baso % (Auto) 0.7, Absolute Neuts (auto) 6.0, Absolute Lymphs (auto) 2.31, Nucleated RBC % 0 07/23/23 18:53: Hemoglobin A1c 12.2 H, Magnesium 2.0, Troponin I High Sens 49 07/23/23 21:13: POC Glucose 385 H 07/23/23 21:44: Troponin I High Sens 52 07/24/23 03:20: WBC 7.4, RBC 5.59, Hgb 15.8, Hct 48.5, MCV 86.8, MCH 28.3, MCHC 32.6, RDW Std Deviation 39.6, RDW Coeff of Marianna 12.7, Plt Count 125 L, MPV 13.1 H, Immature Gran % (Auto) 0.400, Neut % (Auto) 49.5, Lymph % (Auto) 41.[address], [place] % (Auto) 6.0, Eos % (Auto) 1.5, Baso % (Auto) 0.7, Absolute Neuts (auto) 3.6, Absolute Lymphs (auto) 3.08, Nucleated RBC % 0, Sodium 135 L, Potassium 3.8, Chloride 102, Carbon Dioxide 23.0, Anion Gap 10, BUN 20 H, Creatinine 1.05, Estim Creat Clear Calc 118.97, Est GFR (MDRD) Af Amer 99, Est GFR (MDRD) Non-Af 82, BUN/Creatinine Ratio 19.0, Glucose 385 H, Calcium 9.1, Phosphorus 4.1, Magnesium 2.1, Troponin I High Sens 47, B-Natriuretic Peptide 974.8 H, Triglycerides 131, Cholesterol 158, LDL Cholesterol 98, VLDL Cholesterol 26, HDL Cholesterol 34 L, TSH 1.80 07/24/23 06:35: POC Glucose 366 H Cardiology Labs/Tests 07/23/23 15:39: WBC Cancelled, Corrected WBC Cancelled, RBC Cancelled, Hgb Cancelled, Hct Cancelled, MCV Cancelled, MCH Cancelled, MCHC Cancelled, Plt Count Cancelled, MPV Cancelled, Immature Gran % (Auto) Cancelled, Neut % (Auto) Cancelled, Lymph % (Auto) Cancelled, [place] % (Auto) Cancelled, Eos % (Auto) Cancelled, Baso % (Auto) Cancelled, Absolute Neuts (auto) Cancelled, Total Counted Cancelled, Neutrophils % (Manual) Cancelled, Band Neutrophils % Cancelled, Lymphocytes % (Manual) Cancelled, Monocytes % (Manual) Cancelled, Eosinophils % (Manual) Cancelled, Basophils % (Manual) Cancelled, Metamyelocytes % Cancelled, Myelocytes % Cancelled, Promyelocytes % Cancelled, Blast Cells % Cancelled, Plasma Cell % (Manual) Cancelled, Other Cells % Cancelled, Nucleated RBC % Cancelled, Sodium 131 L, Potassium 4.9, Chloride 99, Carbon Dioxide 25.0, Anion Gap 7, BUN 18, Creatinine 1.40 H, Est GFR (MDRD) Af Amer 71, Est GFR (MDRD) Non-Af 59 L, BUN/Creatinine Ratio 12.9, Glucose 517 H*, Calcium 9.3 07/23/23 16:13: WBC 9.1, RBC 5.46, Hgb 15.6, Hct 47.2, MCV 86.4, MCH 28.6, MCHC 33.1, Plt Count 147 L, MPV 13.0 H, Immature Gran % (Auto) 0.400, Neut % (Auto) 66.0, Lymph % (Auto) 25.4, [place] % (Auto) 7.1, Eos % (Auto) 0.4, Baso % (Auto) 0.7, Absolute Neuts (auto) 6.0, Nucleated RBC % 0 07/23/23 18:53: Hemoglobin A1c 12.2 H, Magnesium 2.0 03/28/24 03:20: WBC 7.4, RBC 5.59, Hgb 15.8, Hct 48.5, MCV 86.8, MCH 28.3, MCHC 32.6, Plt Count 125 L, MPV 13.1 H, Immature Gran % (Auto) 0.400, Neut % (Auto) 49.5, Lymph % (Auto) 41.[address], [address] % (Auto) 6.0, Eos % (Auto) 1.5, Baso % (Auto) 0.7, Absolute Neuts (auto) 3.6, Nucleated RBC % 0, Sodium 135 L, Potassium 3.8, Chloride 102, Carbon Dioxide 23.0, Anion Gap 10, BUN 20 H, Creatinine 1.05, Est GFR (MDRD) Af Amer 99, Est GFR (MDRD) Non-Af 82, BUN/Creatinine Ratio 19.0, Glucose 385 H, Calcium 9.1, Phosphorus 4.1, Magnesium 2.1, B-Natriuretic Peptide 974.8 H, Triglycerides 131, Cholesterol 158, LDL Cholesterol 98, VLDL Cholesterol 26, HDL Cholesterol 34 L Rhythm: Radiography Diagnostic Testing: Radiology Impression Chest X-Ray 07/23/23 16:03 IMPRESSION: No radiographic evidence of acute cardiopulmonary disease. Electronically Signed: Brenton Nathan MD at 16:26 EDT , Chest X-Ray 07/24/23 04:54 IMPRESSION: No acute pulmonary finding. Electronically Signed: Garcia Jean MD at 5:46 EDT , Documented by User: Dr. Norma Eaton MD 07/24/23 14:54 Assessment & Plan Assessment/Plan (1) Chest pain: (2) Cardiomyopathy: PLAN: Plan Did review medical records from [facility]. Echocardiogram is pending. It is unlikely that patient would need any additional testing based on heart catheterization from 2021. However based on these findings we will make further adjustments for plan of care. Plan would be to optimize his medications for his heart failure. Will also plan on establishing patient with us in our office so that we can follow on an outpatient basis. Review of the echocardiogram showed severely dilated LV and RV and severe LV systolic dysfunction Ejection fraction in the range of 10-15% Cardiac care plan recommendations; Will start the patient on guideline directed medical therapy in the form of beta-sydnee carvedilol, Entresto, Aldactone, Farxiga, Lasix as needed He has mild lower extremity edema +1. Also recommend LifeVest prior to discharge Follow-up with cardiology and reevaluate for ICD/BiV pacer. In addition to plan of transfer to tertiary cardiac care center for evaluation of LVAD/cardiac transplant. Norma Eaton MD,[facility] [place] HPI Consult Data Date of Consult: 07/24/23 [facility] Medical History CHF (congestive heart failure) Home Medications furosemide 40 mg tablet 40 mg PO BID #14 tabs 06/14/23 [Rx Last Taken Unknown] Allergy/AdvReac Type Severity Reaction Status Date / Time No Known Allergies Allergy Verified 07/23/23 15:22 Social History Smoking Status: Current every day smoker tobacco type: cigarettes Lab / Micro Data 07/24/23 03:20 07/24/23 03:20
[2023-07-24 12:43] LABS: Bedside Glucose 377 mg/dL (74-106)
--- NOTE | 2023-07-24 13:46 | PN.HOSP_ITS ---
Subjective Subjective Doing well, still having some subtle chest pain and pressure, with episodes of orthopnea when he lays flat or on his side Objective Data Objective Data Vital Signs: Vital Signs Temp Pulse Resp BP Pulse Ox O2 Del Method 97.6 F L 73 16 111/75 98 Room Air 07/24/23 08:00 07/24/23 08:00 07/24/23 08:00 07/24/23 08:00 07/24/23 08:04 07/24/23 08:04 Oxygen Delivery Method Room Air Weight: 241 lb 10.026 oz Body Mass Index (BMI) 31.8 Intake & Output: Intake and Output for Last 24 Hours 07/23/23 07/24/23 07/25/23 03:59 03:59 03:59 Intake Total 1004 / 1004 0 / 0 Balance 1004 / 1004 0 / 0 Lab / Micro Data 07/24/23 03:20 07/24/23 03:20 Labs: Laboratory Results - last 24 hr 07/23/23 15:39: WBC Cancelled, Corrected WBC Cancelled, RBC Cancelled, Hgb Can celled, Hct Cancelled, MCV Cancelled, MCH Cancelled, MCHC Cancelled, RDW Std Deviation Cancelled, RDW Coeff of Marianna Cancelled, Plt Count Cancelled, MPV Cancelled, Immature Gran % (Auto) Cancelled, Neut % (Auto) Cancelled, Lymph % (Auto) Cancelled, [place] % (Auto) Cancelled, Eos % (Auto) Cancelled, Baso % (Auto) Cancelled, Absolute Neuts (auto) Cancelled, Absolute Lymphs (auto) Cancelled, Total Counted Cancelled, Neutrophils % (Manual) Cancelled, Band Neutrophils % Cancelled, Lymphocytes % (Manual) Cancelled, Monocytes % (Manual) Cancelled, Eosinophils % (Manual) Cancelled, Basophils % (Manual) Cancelled, Metamyelocytes % Cancelled, Myelocytes % Cancelled, Promyelocytes % Cancelled, Blast Cells % Cancelled, Plasma Cell % (Manual) Cancelled, Other Cells % Cancelled, Nucleated RBC % Cancelled, Nucleated RBCs/100 WBC Cancelled, Differential Comment Cancelled, Diff Path Review Cancelled, Hypersegmented Neuts Cancelled, Atypical Lymphocytes Cancelled, Reactive Lymphocytes Cancelled, Smudge Cells Cancelled, Toxic Granulation Cancelled, Toxic Vacuolation Cancelled, Dohle Bodies Cancelled, John Rods Cancelled, Platelet Estimate Cancelled, Plt Morphology Comment Cancelled, RBC Morphology Cancelled 07/23/23 15:39: RBC Morphology Cancelled, Polychromasia Cancelled, Hypochromasia Cancelled, Basophilic Stippling Cancelled, Anisocytosis Cancelled, Microcytosis Cancelled, Macrocytosis Cancelled, Spherocytes Cancelled, Sickle Cells Cancelled, Target Cells Cancelled, Tear Drop Cells Cancelled, Ovalocytes Cancelled, Stomatocytes Cancelled, Clark-Slayden Bodies Cancelled, [place] Cells Cancelled, Bite Cells Cancelled, Crenated Cell Cancelled, Acanthocytes (Spur) Cancelled, Rouleaux Cancelled, Schistocytes Cancelled, Sodium 131 L, Potassium 4.9, Chloride 99, Carbon Dioxide 25.0, Anion Gap 7, BUN 18, Creatinine 1.40 H, Est GFR (MDRD) Af Amer 71, Est GFR (MDRD) Non-Af 59 L, BUN/Creatinine Ratio 12.9, Glucose 517 H*, Calcium 9.3, Troponin I High Sens 43 07/23/23 16:13: WBC 9.1, RBC 5.46, Hgb 15.6, Hct 47.2, MCV 86.4, MCH 28.6, MCHC 33.1, RDW Std Deviation 39.4, RDW Coeff of Marianna 12.8, Plt Count 147 L, MPV 13.0 H , Immature Gran % (Auto) 0.400, Neut % (Auto) 66.0, Lymph % (Auto) 25.4, [place] % (Auto) 7.1, Eos % (Auto) 0.4, Baso % (Auto) 0.7, Absolute Neuts (auto) 6.0, Absolute Lymphs (auto) 2.31, Nucleated RBC % 0 07/23/23 18:53: Hemoglobin A1c 12.2 H, Magnesium 2.0, Troponin I High Sens 49 07/23/23 21:13: POC Glucose 385 H 07/23/23 21:44: Troponin I High Sens 52 07/24/23 03:20: WBC 7.4, RBC 5.59, Hgb 15.8, Hct 48.5, MCV 86.8, MCH 28.3, MCHC 32.6, RDW Std Deviation 39.6, RDW Coeff of Marianna 12.7, Plt Count 125 L, MPV 13.1 H , Immature Gran % (Auto) 0.400, Neut % (Auto) 49.5, Lymph % (Auto) 41.9 H, [place] % (Auto) 6.0, Eos % (Auto) 1.5, Baso % (Auto) 0.7, Absolute Neuts (auto) 3.6, Absolute Lymphs (auto) 3.08, Nucleated RBC % 0, Sodium 135 L, Potassium 3.8, Chloride 102, Carbon Dioxide 23.0, Anion Gap 10, BUN 20 H, Creatinine 1.05, Estim Creat Clear Calc 118.97, Est GFR (MDRD) Af Amer 99, Est GFR (MDRD) Non-Af 82, BUN/Creatinine Ratio 19.0, Glucose 385 H, Calcium 9.1, Phosphorus 4.1, Magnesium 2.1, Troponin I High Sens 47, B-Natriuretic Peptide 974.8 H, Triglycerides 131, Cholesterol 158, LDL Cholesterol 98, VLDL Cholesterol 26, HDL Cholesterol 34 L, TSH 1.80 07/24/23 06:35: POC Glucose 366 H 07/24/23 10:13: POC Glucose 377 H Radiography Diagnostic Testing: Radiology Impression Chest X-Ray 07/23/23 16:03 IMPRESSION: No radiographic evidence of acute cardiopulmonary disease. Electronically Signed: Brenton Nathan MD at 16:26 EDT , Chest X-Ray 07/24/23 04:54 IMPRESSION: No acute pulmonary finding. Electronically Signed: Garcia Jean MD at 5:46 EDT , Physical Exam Narrative General: Alert, Oriented x3, Cooperative, No apparent distress HEENT: Atraumatic, PERRLA, EOMI, Normocephalic Oral: Moist Mucosa Neck: Supple, No JVD Lungs: Clear to auscultation, Normal air movement, No rhonchi, No wheeze, No rales Cardiovascular: Regular rate, Regular Rhythm, Normal S1, Normal S2, No murmurs Abdomen: Soft, Non Tender, Non-Distended, No Hepato-splenomegaly Extremities: Edema, Capillary Refill Less than 3 Seconds Skin: No rashes, No breakdown Musculoskeletal: No Tenderness to Palpation of Joints or Extremities Neurological: No focal neurological deficits, Motor Exam 5/5 strength throughou t, Sensory exam intact to light touch and pain Psych/Mental Status: Normal Affect, Appropriate Assessment & Plan Assessment/Plan (1) Unstable angina: PLAN: Plan 1. Acute on chronic systolic CHF with unstable angina and frequent PVCs secondary to noncompliance with medication ? He had a heart cath and an echo less than a year ago at [place] and said that he had a reduced EF at that time ? He was placed on medications but since he started to feel fine he stopped taking them ? Will await echocardiogram for this admission as he moved from [place] to [place] ? Cardiology was consulted and at this time do not feel that a repeat heart cath was indicated ? Continue with metoprolol and p.o. Lasix ? Further medication adjustments will be made once his echo is completed ? Will provide him with a carb controlled diet as he does appear to be a diabetic which is also a new diagnosis for him 2. DM2 ? Recently diagnosed and his A1c is 12.2 ? Had an extensive discussion with him on dieting and lifestyle modification, will trial metformin on discharge ? Accu-Cheks ACHS ? Will monitor make adjustments as necessary Diabetes mellitus type 2 * Recent diagnosed but I suspect this is probably more of a chronic process. * Sliding scale insulin. Start insulin glargine 10 units at night. 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 Heart failure with reduced ejection fraction * Clinically compensated at this time. * Continue with furosemide * Check echo as above VTE prophylaxis with low molecular weight heparin.
[2023-07-24 14:00] VITALS: BP 103/63; PULSE 83; RESP 16; TEMP 36.3; O2SAT 99
--- NOTE | 2023-07-24 14:30 | CASEMGMT ---
SW spoke with patient as he is self pay. Patient stated he signed up for insurance and is active July 27. SW did give patient information on Alannah Butts, [employer], and list of prescription assistance programs. SW also let patient know that [facility] can assist with medications once a year. SW will follow. Yanira Harper [employer] NIKKI
[2023-07-24 17:06] LABS: Bedside Glucose 389 mg/dL (74-106)
[2023-07-24 22:00] VITALS: BP 98/77; PULSE 84; RESP 18; TEMP 36.8; O2SAT 97
[2023-07-24] MEDS: Insulin Glargine-YFGN 100 UNIT/ML Pen 10 UNIT SC (22:08)
[2023-07-24 22:09] VITALS: BP 98/77; PULSE 84
[2023-07-24] MEDS: Atorvastatin Calcium 40 MG Tablet PO (22:09)
[2023-07-24 23:09] LABS: Bedside Glucose 393 mg/dL (74-106)
[2023-07-25 05:30] VITALS: BP 84/64; PULSE 86; RESP 16; TEMP 36.6; O2SAT 97
[2023-07-25] MEDS: Insulin Lispro 100 UNIT/ML INSULN.PEN SC ×2 (06:53→11:14)
[2023-07-25 07:04] VITALS: O2SAT 96
[2023-07-25 07:07] LABS: Anion Gap 7 (5-15); BUN 23 mg/dL (7-18); BUN/Creat Ratio 20.7 RATIO (10-20); Calcium,Total 8.8 mg/dL (8.5-10.1); Chloride 103 mmol/L (98-107); Creatinine, Serum 1.11 mg/dL (0.70-1.30); EST Glomerular Filtration Rate 77 mL/min (>60); Est Glom Filt Rate - Afr Amer 93 mL/min (>60); Estimated Creatinine Clearance 112.54 ml/min; Glucose 394 mg/dL (74-106); Potassium 3.8 mmol/L (3.5-5.1); Sodium Level 133 mmol/L (136-145)
[2023-07-25 07:23] LABS: Bedside Glucose 393 mg/dL (74-106)
[2023-07-25 07:35] VITALS: BMI 32.0
[2023-07-25 09:15] VITALS: BP 115/72; PULSE 87; RESP 16; TEMP 36.4; O2SAT 98
[2023-07-25] MEDS: Furosemide 40 MG Tablet PO (09:28)
[2023-07-25] MEDS: Aspirin E.C. 81 MG Tablet PO (09:28)
[2023-07-25] MEDS: Empagliflozin 10 MG Tablet PO (09:28)
[2023-07-25 09:29] VITALS: PULSE 87
[2023-07-25] MEDS: Enoxaparin 40 MG/0.4 ML Syringe SC (09:29)
[2023-07-25] MEDS: Metoprolol Tartrate 25 MG Tablet PO (09:29)
[2023-07-25] MEDS: Lisinopril 5 MG Tablet PO (09:29)
--- NOTE | 2023-07-25 09:51 | CASEMGMT ---
Addendum entered by Yanira Harper 07/25/23 14:47: KIM notified pharmacy patient was receiving [facility] prescription assistance. Aspirin was not covered as it is over the counter. The cost is $2.51 patient is okay with paying for this. Yanira JORDAN Original Note: Patient is going to be discharged on new medications which patient is not able to afford. Patient's insurance starts 07-27. KIM completed [facility] prescription assistance form and will notify pharmacy once discharge is in computer. Yanira JORDAN
[2023-07-25 11:48] LABS: Bedside Glucose 399 mg/dL (74-106)
--- NOTE | 2023-07-25 14:02 | DCINST_ITS ---
Discharge Instructions Diet Discharge Diet: Low fat / Low cholesterol and Carb Control Diet Activity Discharge Activity: Return to Normal Activity Dressing / Incision Call your doctor if you observe: Fever of 101 or Higher, Shortness of breath, Dizziness, Fainting spells, Swelling in the ankles, Chest pain and Increased palpitations (irregular heartbeat) Follow Up Care Test Results: Test results from this visit will be discussed in further detail at your follow- up appointment, if applicable. Discharge Plan Admission Admit Date/Time: 07/23/23 17:40 Attending Provider: Boaz Beverly Primary Care Provider: Sariah Gaspar Primary Consulting Providers: Norma Eaton; Roland Guzman Instructions Patient Instructions: Diabetes: Living Your Life, Diabetes: Meal Planning, Diabetes Carbs Fats Protein, ED CHF Left Side, ED Diabetes- Overview, Heart Failure Additional Instructions / Restrictions: Follow-up with PCP to monitor your kidney function Discharge Orders/Prescriptions Prescriptions: New furosemide 40 mg Tablet 40 mg PO DAILY 30 Days Qty: 30 0RF atorvastatin 40 mg Tablet 40 mg PO QHS 30 Days Qty: 30 0RF aspirin 81 mg Tablet,Delayed Release (Dr/Ec) 81 mg PO BREAKFAST 30 Days Qty: 30 0RF lisinopril 5 mg Tablet 5 mg PO DAILY 30 Days Qty: 30 0RF metoprolol tartrate 25 mg Tablet 25 mg PO BID 30 Days Qty: 60 0RF Jardiance 10 mg Tablet 10 mg PO DAILY 30 Days Qty: 30 0RF metformin 500 mg tablet extended release 24 hr 500 mg PO DAILY Qty: 30 0RF Discontinued furosemide 40 mg tablet 40 mg PO BID Qty: 14 0RF Patient Comments: only takes once daily at night Referrals / Follow Up: Care Physician,No Primary [Primary Care Provider] - Sandie Fierro PA [Med Staff - Adv Practice Prof] - 08/25/23 9:30 am Disposition Disposition (needs filled in before D/C Order can be placed): Home, Self Care
--- NOTE | 2023-07-25 14:24 | CASEMGMT ---
Patient has order for discharge. Script received for glucometer and provided to patient. Patient denies needs or help at discharge. Patient had no further questions or concerns.
[2023-07-25 14:29] VITALS: BP 106/61; PULSE 73; RESP 16; TEMP 36.4; O2SAT 100
--- NOTE | 2023-07-25 14:53 | PN.CARD_ITS ---
Subjective Subjective Doing well, still having some subtle chest pain and pressure, with episodes of orthopnea when he lays flat or on his side Objective Data Vital Signs: Vital Signs Temp Pulse Resp BP Pulse Ox O2 Del Method 97.5 F L 73 16 106/61 100 Room Air 07/25/23 14:29 07/25/23 14:29 07/25/23 14:29 07/25/23 14:29 07/25/23 14:29 07/25/23 14:29 Oxygen Delivery Method Room Air Weight: 242 lb 8.136 oz Body Mass Index (BMI) 32.0 Intake & Output: Intake and Output for Last 24 Hours 07/23/23 07/24/23 07/25/23 23:59 23:59 23:59 Intake Total 1804 / 2304 900 / 900 Balance 1804 / 2304 900 / 900 Lab / Micro Data 07/24/23 03:20 07/25/23 05:45 Labs: Laboratory Results - last 24 hr 07/24/23 16:45: POC Glucose 389 H 07/24/23 22:06: POC Glucose 393 H 07/25/23 05:45: Sodium 133 L, Potassium 3.8, Chloride 103, Carbon Dioxide 23.0, Anion Gap 7, BUN 23 H, Creatinine 1.11, Estim Creat Clear Calc 112.54, Est GFR (MDRD) Af Amer 93, Est GFR (MDRD) Non-Af 77, BUN/Creatinine Ratio 20.7 H, Glucose 394 H, Calcium 8.8 07/25/23 06:46: POC Glucose 393 H 07/25/23 11:13: POC Glucose 399 H Cardiology Labs/Tests 07/25/23 05:45: Sodium 133 L, Potassium 3.8, Chloride 103, Carbon Dioxide 23.0, Anion Gap 7, BUN 23 H, Creatinine 1.11, Est GFR (MDRD) Af Amer 93, Est GFR (MDRD) Non-Af 77, BUN/Creatinine Ratio 20.7 H, Glucose 394 H, Calcium 8.8 Rhythm:SR with PVCs Physical Exam Const alert, oriented x3 and no apparent distress HEENT normocephalic, head/scalp atraumatic, hearing grossly normal bilaterally, external ears normal, external nose normal and moist oral mucous membranes Eyes PERRL, EOMs intact bilaterally, conjunctivae normal and no scleral icterus Neck no lymphadenopathy, supple and no JVD Resp normal air movement and clear to auscultation bilaterally Cardio regular rate, regular rhythm, S1 normal heart sound, S2 normal heart sound, no murmurs, no rub, no gallops, no clicks, no JVD and peripheral pulses 2+ throughout GI normal to inspection, nondistended, normoactive bowel sounds, soft to palpation, non-tender and non-distended Extremity normal to inspection, normal capillary refill, no clubbing, cyanosis or edema and no pedal edema Neuro oriented x3, CN's II-XII intact bilaterally, moves all extremities and no focal motor deficits Psych cooperative and affect normal Assessment & Plan Assessment/Plan (1) Chest pain: (2) Cardiomyopathy: PLAN: Plan * Did review medical records from [facility]. Echocardiogram today demonstrated an ejection fraction of 15%. Do not feel that we need to pursue any additional cardiac testing based on his heart catheterization from 2021. However do feel that he needs to maintain aggressive medical management. Medical management should include a beta-sydnee, an HALLEY or an ARB versus Entresto, diuretic, spironolactone and an SGLT2. If these are not started during his hospital stay would recommend starting them as able to with his blood pressure readings on an outpatient basis. * Patient's disease process was explained to patient. He is aware that he may need a prophylactic ICD if his heart function does not improve. Would like to repeat his echocardiogram in a few months post hospital stay. 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 * Not sure if patient would benefit from a cardiac MRI to evaluate for any additional causes of his decreased ejection fraction. Can consider this on an outpatient basis. Charges/Coding Visit Charges Inpatient E&M: 92991 Subs Hosp L2
--- NOTE | 2023-07-25 17:55 | DS.PCM_ITS ---
Providers Date of Admission: 07/23/23 Primary Care Physician: Sariah Primary Care Phys Consultations 07/23/23 18:28 Consult: Cardiology Routine Consulting Provider: Norma Eaton Reason for Consult: Chest Pain EMERGENT Consult: No MD Notified: Yes Date Notified: 07/23/23 Time Notified: 17:43 Method of Notification: Verbal Reason For Visit: UNSTABLE ANGINA Diagnosis Discharge Diagnosis (1) Chest pain: Status: Acute Code(s): R07.9 - Chest pain, unspecified (2) Cardiomyopathy: Status: Acute Code(s): I42.9 - Cardiomyopathy, unspecified Medications at Discharge Home Medications aspirin 81 mg tablet,delayed release 81 mg PO BREAKFAST 30 days #30 tabs 07/25/23 atorvastatin 40 mg tablet 40 mg PO QHS 30 days #30 tabs 07/25/23 empagliflozin 10 mg tablet (Jardiance) 10 mg PO DAILY 30 days #30 tabs 07/25/23 furosemide 40 mg tablet 40 mg PO DAILY 30 days #30 tabs 07/25/23 lisinopril 5 mg tablet 5 mg PO DAILY 30 days #30 tabs 07/25/23 metformin 500 mg tablet,extended release 24 hr 500 mg PO DAILY #30 tabs 07/25/23 metoprolol tartrate 25 mg tablet 25 mg PO BID 30 days #60 tabs 07/25/23 Hospital Course Operations None Procedures 2-D Echocardiogram Summary of Care Provided Minutes Spent on Discharge: 37 Hospital Course: Per HPI: MORIS YOUNG, is a 42 M who presents with chest pain with exertion, shortness of breath on exertion. Also notes that he has lower extremity edema but is at baseline. Did feel dizzy recently. Patient was seen about a year ago at [facility] where he was told he had a low ejection fraction and has been ordered Lasix. He stated he had a cardiac catheterization at that time that showed normal coronaries but he apparently had a low ejection fraction on cardiac testing. He presents here with worsening symptoms. He has recent been told he has been diabetic and he has cut back on his soda intake from drinking Dr. Teran all day to maybe once a week he will have an orange crush. Medication for 90 Hospital Course: 1. Acute on chronic systolic CHF with unstable angina frequent PVCs secondary to noncompliance with medications?42-year-old male had a heart cath in 2021 at an outside hospital and was found to have clean coronary arteries but had a reduced EF. Echo on this admission demonstrated an EF of 15%. We discussed with him the severity of this EF and the lifestyle modifications he would need to make. He was started on Lasix 40 mg p.o. daily as well as lisinopril 5 mg p.o. daily, he was started on metoprolol tartrate 25 mg twice daily p.o. and also Jardiance 10 mg p.o. daily. Despite normal coronaries given his systolic CHF proceeded with Lipitor as well at 40 mg. He will need to follow-up with c ardiology as an outpatient and have repeat imaging in 4 to 6 weeks, he may benefit from a cardiac MRI to try to elucidate the cause of his reduced EF as it does not appear to be ischemic in nature. I discussed with him the plan for discharge today he expressed understanding of the risk benefits of going home and like to go home today. He denies any further dizziness and feels much better than he did on admission. 2. New onset type 2 diabetes?had extensive discussion with him on lifestyle modifications and dietary restrictions. 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 Will also start him on metformin 500 mg p.o. daily extended release to try to mitigate any GI side effects. I do recommend he follow-up with PCP as an outpatient for further monitoring. Physical Exam Narrative General: Alert, Oriented x3, Cooperative, No apparent distress HEENT: Atraumatic, PERRLA, EOMI, Normocephalic Oral: Moist Mucosa Neck: Supple, No JVD Lungs: Clear to auscultation, Normal air movement, No rhonchi, No wheeze, No rales Cardiovascular: Regular rate, Regular Rhythm, Normal S1, Normal S2, No murmurs Abdomen: Soft, Non Tender, Non-Distended, No Hepato-splenomegaly Extremities: Trace edema, Capillary Refill Less than 3 Seconds Skin: No rashes, No breakdown Musculoskeletal: No Tenderness to Palpation of Joints or Extremities Neurological: No focal neurological deficits, Motor Exam 5/5 strength throughout, Sensory exam intact to light touch and pain Psych/Mental Status: Normal Affect, Appropriate Weight / BMI Weight Weight: 242 lb 8.136 oz Body Mass Index (BMI) 32.0 ABG / Lab / Microbiology Data 07/24/23:20 07/25/23 05:45 Laboratory: Laboratory Results - last 24 hr 07/24/23 22:06: POC Glucose 393 H 07/25/23 05:45: Sodium 133 L, Potassium 3.8, Chloride 103, Carbon Dioxide 23.0, Anion Gap 7, BUN 23 H, Creatinine 1.11, Estim Creat Clear Calc 112.54, Est GFR (MDRD) Af Amer 93, Est GFR (MDRD) Non-Af 77, BUN/Creatinine Ratio 20.7 H, Glucose 394 H, Calcium 8.8 07/25/23 06:46: POC Glucose 393 H 07/25/23 11:13: POC Glucose 399 H D/C Instructions Discharge Diet: Low fat / Low cholesterol and Carb Control Diet Call your doctor if you observe: Fever of 101 or Higher, Shortness of breath, Dizziness, Fainting spells, Swelling in the ankles, Chest pain and Increased palpitations (irregular heartbeat) Meaningful Use Info Meaningful Use Diagnoses (Choose all that apply): None applicable Discharge Plan Admission Admit Date/Time: 07/23/23 17:40 Attending Provider: Boaz Beverly Primary Care Provider: Wanda Heard,No Primary Consulting Providers: Norma Eaton; Roland Guzman Instructions Patient Instructions: Diabetes: Living Your Life, Diabetes: Meal Planning, Diabetes Carbs Fats Protein, ED CHF Left Side, ED Diabetes- Overview, Heart Failure Additional Instructions / Restrictions: Follow-up with PCP to monitor your kidney function Discharge Orders/Prescriptions Prescriptions: New furosemide 40 mg Tablet 40 mg PO DAILY 30 Days Qty: 30 0RF atorvastatin 40 mg Tablet 40 mg PO QHS 30 Days Qty: 30 0RF aspirin 81 mg Tablet,Delayed Release (Dr/Ec) 81 mg PO BREAKFAST 30 Days Qty: 30 0RF lisinopril 5 mg Tablet 5 mg PO DAILY 30 Days Qty: 30 0RF metoprolol tartrate 25 mg Tablet 25 mg PO BID 30 Days Qty: 60 0RF Jardiance 10 mg Tablet 10 mg PO DAILY 30 Days Qty: 30 0RF metformin 500 mg tablet extended release 24 hr 500 mg PO DAILY Qty: 30 0RF Discontinued furosemide 40 mg tablet 40 mg PO BID Qty: 14 0RF Patient Comments: only takes once daily at night Referrals / Follow Up: Care Physician,No Primary [Primary Care Provider] - Sandie Fierro PA [Med Staff - [facility] Practice Prof] - 08/25/23 9:30 am Disposition Disposition (needs filled in before D/C Order can be placed): Home, Self Care Charges/Coding Visit Charges Inpatient E&M: 92660 Subs Hosp L2
== END 2023-07-25 15:32 | disposition home or self-care (01) | DRG 292 ==
LOC: ED 16:54 → PCU 17:53
PROVIDERS: Internal Medicine; Emergency Provider Emergency Medicine; Visit Provider Family Medicine
DX: I50.23 Acute on chronic systolic (congestive) heart failure (principal); I42.8 Other cardiomyopathies; I20.0 Unstable angina; E11.65 Type 2 diabetes mellitus with hyperglycemia; F17.210 Nicotine dependence, cigarettes, uncomplicated; I49.3 Ventricular premature depolarization; Z91.148 Patient's other noncompliance with medication regimen for other reason
CPT/HCPCS: 36415; 71045; 80048; 80061; 82962; 83036; 83735; 83880; 84100; 84443; 84484; 85025; 93005; 93306; 97802; 99284; Q9957; A4216; C8929

== ENCOUNTER → 2023-08-25 | Outpatient (CLI) | payer OTHER, SELFPAY ==
[2023-08-25 12:40] LABS: ALB/GLOB Ratio 1.1 RATIO (0.9-2.4); AST(SGOT) 30 U/L (15-37); Alanine Aminotransfer ALT/SGPT 55 U/L (16-61); Albumin, Serum 3.8 g/dL (3.2-5.0); Alkaline Phosphatase 56 U/L (45-117); Anion Gap 8 (5-15); BUN 22 mg/dL (7-18); BUN/Creat Ratio 20.6 RATIO (10-20); Calcium,Total 9.8 mg/dL (8.5-10.1); Chloride 106 mmol/L (98-107); Creatinine, Serum 1.07 mg/dL (0.70-1.30); EST Glomerular Filtration Rate 80 mL/min (>60); Est Glom Filt Rate - Afr Amer 97 mL/min (>60); Globulin 3.4 g/dL (2.2-4.2); Glucose 193 mg/dL (74-106); Potassium 4.6 mmol/L (3.5-5.1); Protein, Total 7.2 g/dL (6.4-8.2); Sodium Level 138 mmol/L (136-145)
== END | disposition home or self-care (01) ==
LOC: LAB 10:09
PROVIDERS: Referring Provider Physician Assistant Medical; Visit Provider Physician Assistant Medical
DX: I42.9 Cardiomyopathy, unspecified (principal)
CPT/HCPCS: 36415; 80053

== ENCOUNTER 2023-11-23 15:33 | Emergency (ER) | payer OTHER, SELFPAY ==
[2023-11-23 15:34] VITALS: BP 112/67; PULSE 35; RESP 17; TEMP 36.6; O2SAT 98; BMI 31.1
--- NOTE | 2023-11-23 15:58 | CT_ITS ---
INDICATION: throat pain.Sore Throat X 1 Wk, Had One Round ABX, Increased Throat Pain Radiating Down Chest, Hx-Chf EXAMINATION: CT NECK WITH CONTRAST - CT Soft Tissue Neck W/ Contrast Injection TECHNIQUE: Helically acquired images were obtained of the neck following IV contrast. A radiation dose optimization technique was used for this scan. IV Contrast dosage and agent: 75 mL Isovue-370 Radiation Dose (provided by facility) CTDIvol (18.01 ) mGy, DLP ( 1251.55) mGy-cm COMPARISON: None. FINDINGS: AREA OF INTEREST: 1. Normal appearance of the mucosal space. No mucosal thickening abnormal fluid collections or radiopaque foreign bodies. Normal appearance the tonsillar pillars. No evidence of tonsillar or peritonsillar fluid collection or abscess. 2. No evidence of retropharyngeal adenopathy. REMAINING COMPARTMENTS OF THE NECK: PAROTID, UPHOLSTERY RESTORER, SUBMANDIBULAR SPACE: Normal appearance of glandular parenchyma. Elements of the spot welder space have normal appearance. No evidence of areas of abnormal signal, MUCOSAL SPACE: Normal appearance the mucosal space. No evidence of mucosal thickening mass or abnormal signal. LARYNX AND SUBGLOTTIC AIRWAY: Normal appearance of the larynx and subglottic airway. No mucosal masses nodules or areas of abnormal signal. THYROID: Normal in size configuration and density. No mass is noted. VASCULAR SPACE: Normal appearance the elements of the carotid space. No evidence of arterial or venous abnormalities. LYMPH NODES: No adenopathy or areas of abnormal signal or enhancement noted within the deep cervical chain, and suprahyoid and infrahyoid neck bilaterally. CERVICAL SPINE AND PARASPINOUS SOFT TISSUES: Within age-appropriate limits. No focal lytic or sclerotic or destructive bony lesions, no focal acute canal stenosis noted. SKULL BASE AND VISUALIZED INTRACRANIAL CONTENTS: Within normal limits. No masses or destructive bony process is noted. ORBITS PARANASAL SINUSES: Orbits have normal appearance. Paranasal sinuses are clear. UPPER LUNG AND MEDIASTINUM: Within normal limits, no areas of airspace consolidation, effusion, pneumothorax, masses or adenopathy. CT/Soft Tissue Neck WITH Contrast IMPRESSION: 1. No masses, adenopathy or abnormal fluid collections. No evidence of mucosal thickening or fluid collections. No tonsillar or peritonsillar abscess. Electronically Signed: David Santiago MD at 17:45 EDT ,
--- NOTE | 2023-11-23 16:05 | EDS_ITS ---
HPI <BULL Miramontes - Last Filed: 11/23/23 17:57> History of Present Illness Chief Complaint: Sore Throat Narrative Narrative: Patient is a 43-year-old male with history of hypertension hyperlipidemia, abnormal heartbeat who presents to the emergency department for evaluation for his throat. Over the last 7 days, patient been having worsening sore throat. He went to urgent care, they placed him on amoxicillin, the strep was negative however they thought they saw an ulcer to the left tonsil so they put him on amoxicillin. Patient denies any fever chills nausea or vomiting. Patient states the throat is hurting more posterior. States is hurting every time he swallows and he is having difficulty sleeping. Here for evaluation. PFS <BULL Miramontes - Last Filed: 11/23/23 17:57> [facility] Medical History (Updated 11/23/23 @ 17:57 by BULL Miramontes) Nonischemic cardiomyopathy CHF (congestive heart failure) Home Medications ?Medication ?Instructions ?Recorded ?Last Taken ?Type aspirin 81 mg tablet,delayed 81 mg PO BREAKFAST #90 tabs 08/25/23 Unknown Rx release atorvastatin 40 mg tablet 40 mg PO QHS #90 tabs 08/25/23 Unknown Rx empagliflozin 10 mg tablet 10 mg PO DAILY #90 tabs 08/25/23 Unknown Rx (Jardiance) furosemide 40 mg tablet 40 mg PO DAILY #90 tabs 08/25/23 Unknown Rx lisinopril 5 mg tablet 5 mg PO DAILY #90 tabs 08/25/23 Unknown Rx metformin 500 mg tablet,extended 500 mg PO DAILY #90 tabs 08/25/23 Unknown Rx release 24 hr metoprolol tartrate 25 mg tablet 25 mg PO BID #180 tabs 08/25/23 Unknown Rx Allergy/AdvReac Type Severity Reaction Status Date / Time No Known Allergies Allergy Verified 11/23/23 15:34 Social History Smoking Status: Current every day smoker tobacco type: cigarettes ROS <BULL Miramontes - Last Filed: 11/23/23 17:57> ROS ED ROS Narrative Constitutional: Negative for fever, chills, weight loss, weakness Eyes: Negative for vision loss, vision change, double vision ENT: Negative for any ear pain, congestion. Positive sore throat Cardiovascular: Negative for any chest pain, tightness, palpitations Respiratory: Negative for any cough, sputum production, hemoptysis, dyspnea, dyspnea on exertion, orthopnea Gastrointestinal: Negative for any abdominal pain, nausea, vomiting, diarrhea, constipation, blood in stool, blood in vomit : Negative for any urinary frequency, dysuria, retention, blood in urine Muscle skeletal: Negative for any neck pain, back pain Neurological: Negative for any headache, syncope, dizziness Skin: Negative for any rashes, itching, abrasions, lacerations Psychiatric: Negative for any depression, anxiety, stress, suicidal ideation, homicidal ideation Hematologic: Negative for any excessive bruising, easy bleeding EXAM <BULL Miramontes - Last Filed: 11/23/23 17:57> Physical Exam Narrative Exam Narrative: Vital signs reviewed. HEET: Head normocephalic atraumatic, TMs clear bilaterally. Posterior pharynx is clear, moist mucous membranes. Nares clear bilaterally. Patient does have some anterior cervical lymphadenopathy, erythema to bilateral posterior pharynx however there is no unilateral swelling, no uvular deviation. Neck: Supple with no lymphadenopathy or tenderness. No signs of meningismus. Cardiac: Patient's heart rate was irregular, I do not believe it was 35 bpm. no murmurs gallops or rubs, equal peripheral pulses bilaterally. Respiratory: Lungs clear to auscultation bilaterally. No chest tenderness. Abdomen: Soft, nontender, nondistended. No abdominal bruit or pulsatile masses. No hepatosplenomegaly Extremities: No peripheral edema, no signs of gross trauma or deformity. Active full range of motion of all extremities. Neuro: Cranial nerves II through XII intact, no focal neurological deficits. Skin: Clean dry and intact with no rash, purpura, petechiae, vesicles or pustules. Backs/flank: No CVA tenderness, no midline spinal tenderness, no deformity. Psych: Normal mood and affect. No SI, HI or acute psychosis. Const Vital Signs: 11/23/23 15:34 11/23/23 17:00 11/23/23 18:03 Temperature 98 F 98.2 F 98.0 F Temperature Source Temporal Oral Pulse Rate 35 L 78 78 Respiratory Rate 17 18 18 Blood Pressure 112/67 113/65 123/74 H Blood Pressure Mean 82 81 90 Pulse Ox 98 99 100 Oxygen Delivery Method Room Air Room Air <Dr. Joao Jernigan DO - Last Filed: 11/23/23 18:34> Physical Exam Const Vital Signs: 11/23/23 15:34 11/23/23 17:00 11/23/23 18:03 Temperature 98 F 98.2 F 98.0 F Temperature Source Temporal Oral Pulse Rate 35 L 78 78 Respiratory Rate 17 18 18 Blood Pressure 112/67 113/65 123/74 H Blood Pressure Mean 82 81 90 Pulse Ox 98 99 100 Oxygen Delivery Method Room Air Room Air MDM <BULL Miramontes - Last Filed: 11/23/23 17:57> MDM Lab Data Labs: Laboratory Results - last 24 hr 11/23/23 16:10 WBC 8.5 RBC 4.97 Hgb 14.9 Hct 43.6 MCV 87.7 MCH 30.0 MCHC 34.2 RDW Std Deviation 40.7 RDW Coeff of [place] 12.7 Plt Count 179 MPV 11.3 Immature Gran % (Auto) 0.200 Neut % (Auto) 62.1 Lymph % (Auto) 28.7 Benzie % (Auto) 6.9 Eos % (Auto) 1.6 Baso % (Auto) 0.5 Absolute Neuts (auto) 5.3 Absolute Lymphs (auto) 2.44 Nucleated RBC % 0 Sodium 139 Potassium 4.0 Chloride 106 Carbon Dioxide 29.0 Anion Gap 4 L BUN 14 Creatinine 1.02 Estim Creat Clear Calc 119.85 Est GFR (MDRD) Af Amer 102 Est GFR (MDRD) Non-Af 85 BUN/Creatinine Ratio 13.7 Glucose 281 H Calcium 9.0 Radiography Diagnostic Testing: Clinical Impression(s) from Imaging Studies Soft Tissue Neck CT 11/23/23 15:58 IMPRESSION: 1. No masses, adenopathy or abnormal fluid collections. No evidence of mucosal thickening or fluid collections. No tonsillar or peritonsillar abscess. Electronically Signed: David Santiago MD at 17:45 EDT , Treatment and Re-Evaluation :: Differential diagnosis includes however is not limited to: Strep pharyngitis, viral pharyngitis, peritonsillar abscess, lymphadenopathy Patient appears to be in no obvious distress vital signs are stable, patient is nontoxic-appearing. Presenting to the emergency department with complaints of throat pain, on amoxicillin for 7 days. Patient received basic laboratory v alues, IV fluids, Toradol, oral dexamethasone. Patient will receive a CT scan of the soft tissue neck with IV contrast. All radiologic examinations were read, reviewed by the emergency department attending. From these reads, a plan of care will be put in place. Patient CBC was unremarkable, chemistries were unremarkable, patient blood glucose was 281. Patient's COVID-19 influenza [address] was negative. CT scan of the soft tissue neck shows no masses, adenopathy, or abnormal fluid collections. No evidence of mucosal thickening or fluid collections. No tonsillar peritonsillar abscess. Secondary to this finding, patient will have improvement with the dexamethasone, he will continue his antibiotic. Patient will return for any worsening symptoms. All questions answered, stable for discharge. <Dr. Joao Jernigan, DO - Last Filed: 11/23/23 18:34> MDM History & Record Review Discussion w/independent historian: Patient Lab Data Attestation: I reviewed the patient's lab results. Labs: Laboratory Results - last 24 hr 11/23/23 16:10 WBC 8.5 RBC 4.97 Hgb 14.9 Hct 43.6 MCV 87.7 MCH 30.0 MCHC 34.2 RDW Std Deviation 40.7 RDW Coeff of Mraianna 12.7 Plt Count 179 MPV 11.3 Immature Gran % (Auto) 0.200 Neut % (Auto) 62.1 Lymph % (Auto) 28.7 Benzie % (Auto) 6.9 Eos % (Auto) 1.6 Baso % (Auto) 0.5 Absolute Neuts (auto) 5.3 Absolute Lymphs (auto) 2.44 Nucleated RBC % 0 Sodium 139 Potassium 4.0 Chloride 106 Carbon Dioxide 29.0 Anion Gap 4 L BUN 14 Creatinine 1.02 Estim Creat Clear Calc 119.85 Est GFR (MDRD) Af Amer 102 Est GFR (MDRD) Non-Af 85 BUN/Creatinine Ratio 13.7 Glucose 281 H Calcium 9.0 Radiography Diagnostic Testing: Clinical Impression(s) from Imaging Studies Soft Tissue Neck CT 11/23/23 15:58 IMPRESSION: 1. No masses, adenopathy or abnormal fluid collections. No evidence of mucosal thickening or fluid collections. No tonsillar or peritonsillar abscess. Electronically Signed: aDvid Santiago MD at 17:45 EDT , Treatment and Re-Evaluation :: Differential diagnosis includes however is not limited to: Strep pharyngitis, viral pharyngitis, peritonsillar abscess, lymphadenopathy Patient appears to be in no obvious distress vital signs are stable, patient is nontoxic-appearing. Presenting to the emergency department with complaints of throat pain, on amoxicillin for 7 days. Patient received basic laboratory values, IV fluids, Toradol, oral dexamethasone. Patient will receive a CT scan of the soft tissue neck with IV contrast. All radiologic examinations were read, reviewed by the emergency department attending. From these reads, a plan of care will be put in place. Patient CBC was unremarkable, chemistries were unremarkable, patient blood glucose was 281. Patient's COVID-19 influenza [address] was negative[address] CT scan of the soft tissue neck shows no masses, adenopathy, or abnormal fluid collections. No evidence of mucosal thickening or fluid collections. No tonsillar peritonsillar abscess. Secondary to this finding, patient will have improvement with the dexamethasone, he will continue his antibiotic. Patient will return for any worsening symptoms. All questions answered, stable for discharge. I have personally performed a face to face assessment of the patient and have reviewed the JOBY Note. I performed a substantive portion of the visit including all aspects of the following. My asencio findings include: History is 43-year-old male states he was recently told he had an ulcer on his tonsil. He was placed on amoxicillin. States it has been a week and he feels pain is moved lower into the neck and spreading down to his anterior chest. No fevers. Voice has not changed. Choking on food. He is a long-term smoker. Exam is no tonsillar enlargement or exudate or palatal petechiae seen. I do not appreciate any retropharyngeal or peritonsillar abscess. Uvula is large but does not appear edematous. There is no stridor. No trismus. Medical Decison Making patient blood work was obtained and was negative. CT is also negative. Patient received a dose of dexamethasone would recommend finishing out the amoxicillin. Follow-up if not improving Discharge Plan Triage Chief Complaint: Sore Throat ED Midlevel Provider: Mark Anthony Olsen ED Provider: Joao Jernigan Dx/Rx/DC Orders Clinical Impression: Pharyngitis, Acute hyperglycemia Instructions: ED Pharyngitis, Report Pending, ED Pharyngitis, Viral Prescriptions: No Action aspirin 81 mg tablet,delayed release (DR/EC) 81 mg PO BREAKFAST Qty: 90 3RF atorvastatin 40 mg tablet 40 mg PO QHS Qty: 90 3RF Jardiance 10 mg tablet 10 mg PO DAILY Qty: 90 3RF furosemide 40 mg tablet 40 mg PO DAILY Qty: 90 3RF lisinopril 5 mg tablet 5 mg PO DAILY Qty: 90 3RF metformin 500 mg tablet extended release 24 hr 500 mg PO DAILY Qty: 90 3RF metoprolol tartrate 25 mg tablet 25 mg PO BID Qty: 180 3RF Primary Care Provider: Care Physician,No Primary Referrals: Care Physician,No Primary [Primary Care Provider] - Activity Restrictions/Additional Instructions: Please follow-up outpatient. Return for any worsening symptoms. Print Language: Swedish Disposition Disposition: Home, Self Care Discharge Date/Time: 11/23/23 18:04
[2023-11-23] MEDS: Ketorolac 15 MG/ML Vial IV (16:12)
[2023-11-23] MEDS: 0.9% Normal Saline (1000mL) 1,000 ML 999 ML IV (16:12)
[2023-11-23] MEDS: dexAMETHasone 4 MG Tablet 12 MG PO (16:13)
[2023-11-23 16:24] LABS: Absolute Lymphocyte Count 2.44 X10^3/uL (0.83-4.51); Absolute Neutrophil Count 5.3 X10^3/uL (2.0-7.7); Basophil# 0.04 X10^3/uL; Basophil% 0.5 % (0-1); Eosinophil# 0.14 X10^3/uL; Eosinophils% 1.6 % (0-5); Hematocrit 43.6 % (40-54); Hemoglobin 14.9 g/dL (13.0-16.5); Lymphocyte # 2.44 X10^3/ul (0.83-4.51); Lymphocyte % 28.7 % (19-41); Mean Corp Hgb Conc 34.2 g/dL (32-36); Mean Corpuscular Volume 87.7 fL (80-94); Mean Platelet Vol. 11.3 fl (6.2-12.0); Monocyte# 0.59 X10^3/uL; Monocyte% 6.9 % (0-10); NRBC Flagged by Analyzer 0 % (0-5); Neutrophil # 5.28 X10^3/uL (2.7-7.7); Neutrophil % 62.1 % (47-70); Platelet Count 179 K/mm3 (150-450); RBC Distribution Width CV 12.7 % (11.6-14.6); RBC Distribution Width SD 40.7 fl (35.1-43.9); Red Blood Count 4.97 M/mm3 (4.6-6.2); White Blood Count 8.5 K/mm3 (4.4-11.0)
[2023-11-23 16:48] LABS: Anion Gap 4 (5-15); BUN 14 mg/dL (7-18); BUN/Creat Ratio 13.7 RATIO (10-20); Chloride 106 mmol/L (98-107); Creatinine, Serum 1.02 mg/dL (0.70-1.30); EST Glomerular Filtration Rate 85 mL/min (>60); Est Glom Filt Rate - Afr Amer 102 mL/min (>60); Estimated Creatinine Clearance 119.85 ml/min; Glucose 281 mg/dL (74-106); Sodium Level 139 mmol/L (136-145)
[2023-11-23 17:00] VITALS: BP 113/65; PULSE 78; RESP 18; TEMP 36.8; O2SAT 99
[2023-11-23 18:03] VITALS: BP 123/74; PULSE 78; RESP 18; TEMP 36.7; O2SAT 100
== END 2023-11-23 18:04 | disposition home or self-care (01) ==
PROVIDERS: Nurse Practitioner; Emergency Provider Emergency Medicine; Visit Provider Emergency Medicine
DX: J02.9 Acute pharyngitis, unspecified (principal); I50.9 Heart failure, unspecified; I11.0 Hypertensive heart disease with heart failure; I42.8 Other cardiomyopathies; Z11.52 Encounter for screening for COVID-19; R73.9 Hyperglycemia, unspecified; F17.210 Nicotine dependence, cigarettes, uncomplicated; Z79.82 Long term (current) use of aspirin; Z79.84 Long term (current) use of oral hypoglycemic drugs; Z79.899 Other long term (current) drug therapy
CPT/HCPCS: 70491; 80048; 85025; 87631; 96361; 96374; 99283; J7030

== ENCOUNTER 2025-02-23 22:16 | Emergency (ER) | payer SELFPAY ==
[2025-02-23 22:17] VITALS: BP 132/81; PULSE 84; RESP 16; TEMP 36.6; O2SAT 98
[2025-02-23 22:24] VITALS: BMI 33.0
--- NOTE | 2025-02-23 22:47 | EKG12_ITS ---
Test Reason : ABDOMINAL PAIN
[2025-02-23] MEDS: Pantoprazole Sodium 40 MG in 0.9% Normal Saline (100mL MB+) 100 ML 300 MG IV (23:04)
--- NOTE | 2025-02-23 23:05 | ED.VIS.GI ---
HPI HPI - GI History of Present Illness Chief Complaint: Abd Pain Informant: patient Narrative Narrative: Patient is a 44-year-old male with history of nonischemic cardiomyopathy, diabetes (no longer diabetic after weight loss and lifestyle changes) and reported history of GERD (previously was on Zantac but had stopped as his acid reflux had resolved once he had weight loss and diet changes. He is presenting today with worsening epigastric abdominal pain, nausea and vomiting as well as 2 episodes of black tarry stools. He states 3 days ago he noticed some mild right sided flank pain. He did not think too much of it however today he has had intermittent sharp episodes of epigastric pain that lasted about a minute at a time. He has had nausea and has been vomiting when he is drinking (states a drink about half a bottle of water and then vomited) as well as sensation of acid reflux. Does not report any blood in his vomit. Does not take any blood thinners. Denies any recent aspirin or NSAID use. Denies any show any bleeding disorders. Never had a colonoscopy or EGD. Has not taken any antacid medication including Pepto-Bismol that could have discolored his stool. He has had a prior cholecystectomy. Notes he did have an episode of lightheadedness but it was after a coughing fit after he threw up and does not currently feel lightheaded. No other complaints or concerns reported at this time. [facility] Medical History Nonischemic cardiomyopathy CHF (congestive heart failure) Home Medications ?Medication ?Instructions ?Recorded ?Last Taken ?Type metformin 500 mg tablet 500 mg PO BID #60 tabs 02/24/25 Unknown Rx pantoprazole 20 mg tablet,delayed 20 mg PO DAILY #30 tabs 02/24/25 Unknown Rx release (Protonix) Allergy/AdvReac Type Severity Reaction Status Date / Time No Known Allergies Allergy Verified 02/23/25 22:18 Social History Smoking Status: Current every day smoker tobacco type: cigarettes ROS ROS ED Constitutional Constitutional ED: Denies chills or fever(s) Cardiovascular Cardiovascular: Denies chest pain Respiratory/Chest Respiratory/Chest: Denies cough or dyspnea Gastrointestinal Gastrointestinal: Reports abdominal pain, melena, nausea and vomiting Genitourinary Genitourinary ED: Denies dysuria Musculoskeletal Musculoskeletal: Denies arthralgias or myalgias Integumentary Denies rash Neurologic Neurologic: Denies weakness Hematologic/Lymphatic Hematologic/Lymphatic: Denies easy bleeding or easy bruising EXAM Physical Exam Const Vital Signs: 02/23/25 22:17 02/24/25 00:00 Temperature 97.8 F Temperature Source Oral Pulse Rate 84 74 Respiratory Rate 16 18 Blood Pressure 132/81 H 118/84 H Blood Pressure Mean 98 95 Pulse Ox 98 97 Oxygen Delivery Method Room Air Room Air Positive well nourished and well developed General Appearance ED: well developed and NAD; Negative for pallor HEENT Reports moist mucous membranes normocephalic and atraumatic Eyes EOMs intact bilaterally General Eye ED: Negative for pale conjunctiva Neck supple and no JVD Resp normal respiratory effort and clear to auscultation bilaterally Cardio regular rate, regular rhythm and no murmurs GI non-distended GI Narrative: Chaperoned rectal exam performed. He had a very scant amount of black-colored stool present. Sent for Hemoccult. Auscultation: normoactive bowel sounds Palpation: soft and tender epigastric; Negative for guarding or rigid Back/Spine no CVA tenderness Extremity full ROM General Extremety ED: Negative for edema General Extremity: Negative for edema Neuro moves all extremities Sensorium / Orientation: alert, oriented to person, oriented to place and oriented to time Motor Exam: Negative for general weakness Psych mental status grossly normal and thought process normal Skin no wounds General Skin Exam: Negative for jaundice or pallor MDM MDM MDM Narrative Medical decision making narrative: Patient is evaluated for black stools and stated recent increase acid reflux and epigastric abdominal pain. Has history of nonischemic cardiomyopathy as well as diabetes mellitus however has not taken any medication and is not currently followed with primary care doctor. Previously had been taking Zantac but is stopped that. Denies eating or drinking anything or taking any [id number] medications that could have discolored stool black. Differential includes not limited to gastritis, peptic ulcer disease, pancreatitis, esophagitis, bleeding diathesis, anemia and lower suspicion for referred cardiac symptoms or cholecystitis. Patient given IV Protonix in the emergency room. Rectal exam shows a very scant amount of dark stool which is sent for Hemoccult. This is ultimately negative. CBC is normal with a hemoglobin of 15.8. CMP shows hyperglycemia with a glucose of 2 36 over his normal anion gap and normal bicarb. He also has normal BUN lower suspicion for ongoing upper GI bleed. Very mild elevation of his ALT at 56 which is nonspecific. Lipase is normal. Lower pancreatitis. EKG does show some T wave inversions and troponin is added on however this is normal. Given that the symptoms have been going on for a couple days I do not think requires further trending. Patient will be discharged home with a prescription for Protonix given increased reflux symptoms. Will also given a prescription for metformin and counseled to titrate this up to twice a day discharge treat his diabetes. Previously been on it the last time he was discharged from the hospital but has been off for about a year as he is not followed up with family medicine. Is given referral for GI as well as primary care. Counseled the importance of follow-up. Given return precautions. Discharged home in stable condition. Patient's Glascow/Blatchford bleeding score is 0 which is low risk. He he is a good candidate for outpatient follow-up. Lab Data Attestation: I reviewed the patient's lab results. Labs: Laboratory Results - last 24 hr 02/23/25 23:29 WBC 7.4 RBC 5.30 Hgb 15.8 Hct 45.3 MCV 85.5 MCH 29.8 MCHC 34.9 RDW Std Deviation 37.7 RDW Coeff of [place] 12.2 Plt Count 187 MPV 11.0 Immature Gran % (Auto) 0.400 Neut % (Auto) 47.9 Lymph % (Auto) 41.0 [place]undy % (Auto) 6.7 Eos % (Auto) 3.1 Baso % (Auto) 0.9 Absolute Neuts (auto) 3.6 Absolute Lymphs (auto) 3.05 Nucleated RBC % 0 Sodium 137 Potassium 3.9 Chloride 104 Carbon Dioxide 22.3 Anion Gap 11 BUN 10 Creatinine 0.81 Estim Creat Clear Calc 153.71 Est GFR (MDRD) Non-Af 111 BUN/Creatinine Ratio 12.7 Glucose 236 H Calcium 8.8 Total Bilirubin 0.35 AST 30 ALT 56 H Alkaline Phosphatase 46 Troponin T High Sens 18 Total Protein 6.0 Albumin 3.9 Globulin 2.1 L Albumin/Globulin Ratio 1.8 Lipase 52 Rhythm Strip Rhythm Strip: Sinus Rhythm Rate: 77 Ectopy: None EKG Initial EKG: Attestation: I personally reviewed and interpreted this EKG as follows: Interpretation: Sinus Rhythm Comments: Normal sinus rhythm rate of 77 bpm Left axis deviation Normal intervals T wave inversions in leads I, inferior leads as well as V4 through V6 These are more pronounced compared to prior EKG however he no longer has frequent PVCs. Discharge Plan Triage Chief Complaint: Abd Pain ED Provider: Alexandra Duckworth Dx/Rx/DC Orders Clinical Impression: Abdominal pain, epigastric, Gastritis, Diabetes mellitus Instructions: ED Gastritis Ulcer No Abx, ED Diet: Diabetes Prescriptions: New metformin 500 mg tablet 500 mg PO BID Qty: 60 0RF pantoprazole [Protonix] 20 mg tablet,delayed release (DR/EC) 20 mg PO DAILY Qty: 30 0RF Stand Alone Forms: ED Work / School Excuse Primary Care Provider: Care Physician,No Primary Referrals: Lorenzo Mullen, [Med Staff - Active Staff, Gastroenterology] Alannah Butts [Non-Staff, Medical] Care Physician,No Primary [Primary Care Provider, Medical] Activity Restrictions/Additional Instructions: Your workup today was largely normal/reassuring as far as acid reflux and black stools. You have been started on a prescription antacid medication. Please follow-up with the GI specialist as well as you might have an ulcer and need a scope (EGD) for further evaluation of this. In addition your blood sugar was elevated and you have been restarted on metformin. Start taking it once a day or once every other day for couple days and then slowly increase to twice a day to prevent diarrhea associated with metformin. If you develop manuel bleeding, lightheadedness or worsening symptoms please do not hesitate to return to the emergency room. Print Language: Portuguese Disposition Disposition: Home, Self Care
[2025-02-23 23:47] LABS: Hematocrit 45.3 % (40-54); Hemoglobin 15.8 g/dL (13.0-16.5); Immature Granulocytes Count 0.030 X10^3/uL (0.0-0.0); Mean Corp Hgb Conc 34.9 g/dL (32-36); Mean Corpuscular Volume 85.5 fL (80-94); Mean Platelet Vol. 11.0 fl (6.2-12.0); NRBC Flagged by Analyzer 0 % (0-5); Platelet Count 187 K/mm3 (150-450); RBC Distribution Width CV 12.2 % (11.6-14.6); RBC Distribution Width SD 37.7 fl (35.1-43.9); Red Blood Count 5.30 M/mm3 (4.6-6.2); White Blood Count 7.4 K/mm3 (4.4-11.0)
[2025-02-24] VITALS: BP 118/84; PULSE 74; RESP 18; O2SAT 97
[2025-02-24 00:12] LABS: Troponin T High Sensitivity 18 ng/L (<=22)
[2025-02-24 00:14] LABS: Lipase 52 U/L (13-75)
[2025-02-24 00:15] LABS: AST(SGOT) 30 U/L (<=37); Alanine Aminotransfer ALT/SGPT 56 U/L (<=46); Albumin, Serum 3.9 g/dL (3.5-5.0); Alkaline Phosphatase 46 U/L (40-129); Anion Gap 11 (5-15); BUN 10 mg/dL (4-19); BUN/Creat Ratio 12.7 RATIO (10-20); Calcium,Total 8.8 mg/dL (7.6-11.0); Carbon Dioxide 22.3 mmol/L (21.0-32.0); Chloride 104 mmol/L (98-108); Estimated Creatinine Clearance 153.71 ml/min (50-250); Globulin 2.1 g/dL (2.2-4.2); Glucose 236 mg/dL (70-99); Potassium 3.9 mmol/L (3.3-5.1)
[2025-02-24 00:52] VITALS: BP 118/84; PULSE 74; RESP 16; TEMP 36.7; O2SAT 97
== END 2025-02-24 01:16 | disposition home or self-care (01) ==
PROVIDERS: Emergency Provider Emergency Medicine; Visit Provider Emergency Medicine
DX: K29.70 Gastritis, unspecified, without bleeding (principal); I50.9 Heart failure, unspecified; I42.8 Other cardiomyopathies; E11.65 Type 2 diabetes mellitus with hyperglycemia; R10.13 Epigastric pain; R11.2 Nausea with vomiting, unspecified; K21.9 Gastro-esophageal reflux disease without esophagitis; Z79.84 Long term (current) use of oral hypoglycemic drugs; F17.210 Nicotine dependence, cigarettes, uncomplicated
CPT/HCPCS: 80053; 82274; 83690; 84484; 85025; 93005; 96365; 99283; A4216